=== PATIENT | female | born 1940 | race African-American/Black ===

== ENCOUNTER 2025-01-28 21:34 | Inpatient (IN) | payer MEDICARE, OTHER ==
[~2025-01-28] VITALS: Ht 170.2 cm; Wt 63.5 kg
[2025-01-28 22:25] LABS: BASOPHILS # (AUTO) 0.1 K/uL (0.0-0.2); BASOPHILS % (AUTO) 1.2 % (0.0-2.0); EOSINOPHILS # (AUTO) 0.1 K/uL (0.0-0.7); EOSINOPHILS % (AUTO) 1.3 % (0.0-6.0); HEMATOCRIT 24 % (33-45); HEMOGLOBIN 7.9 g/dL (11.5-14.8); LYMPHOCYTES % (AUTO) 21.2 % (20.0-44.0); MEAN CORPUSCULAR HEMOGLOBIN 24 PG (26.0-33.0); MEAN CORPUSCULAR HGB CONC 32 g/dl (31.0-36.0); MEAN CORPUSCULAR VOLUME 76 fL (82-100); MONOCYTES # (AUTO) 0.8 K/uL (0.1-1.30); MONOCYTES % (AUTO) 16.5 % (2.0-12.0); NEUTROPHILS # (AUTO) 2.8 K/uL (1.8-8.9); NEUTROPHILS % (AUTO) 59.8 % (43.0-81.0); PLATELET COUNT (AUTO) 101 K/uL (150-450); RED BLOOD CELL COUNT(AUTO) 3.23 MIL/uL (4.0-5.2); RED CELL DISTRIBUTION WIDTH 19.1 % (11.5-15.0); WHITE BLOOD COUNT (AUTO) 4.7 K/uL (4.3-11.0)
[2025-01-28 22:32] LABS: CALCIUM, SERUM 9.2 mg/dL (8.5-10.1); CARBON DIOXIDE 29 mmol/L (21-32); CHLORIDE 98 mmol/L (98-107); GLUCOSE 93 mg/dL (74-106); POTASSIUM 4.3 mmol/L (3.5-5.1); SODIUM SERUM 133 mmol/L (136-145); UREA NITROGEN, BLOOD 17 mg/dL (7-18)
[2025-01-28 22:45] LABS: NT-PRO BNP 1164 pg/mL (0-125)
[2025-01-28] MEDS ORDERED: FUROSEMIDE 40 MG/4 ML VIAL ONE (23:25)
[2025-01-28] MEDS: FUROSEMIDE 40 MG/4 ML VIAL IV ONE (23:30)
[2025-01-28] MEDS ORDERED: MORPHINE SULFATE INJ 2 MG/ML DISP.SYRIN ONE (23:46)
[2025-01-28] MEDS: MORPHINE SULFATE INJ 2 MG/ML DISP.SYRIN IV ONE (23:54)
[2025-01-28 23:55] LABS: APPEARANCE,URINE CLEAR (CLEAR); BILIRUBIN,URINE NEGATIVE (NEGATIVE); BLOOD, URINE NEGATIVE Ery/uL (NEGATIVE); COLOR,URINE YELLOW (YELLOW); KETONES,URINE NEGATIVE (NEGATIVE); LEUKOCYTE ESTERASE ,URINE NEGATIVE (NEGATIVE); NITRITE, URINE NEGATIVE (NEGATIVE); PROTEIN,URINE 1+ mg/dl (NEGATIVE); UGLUCOSE NEGATIVE (NEGATIVE); UROBILINOGEN,URINE 0.2 EU/dL (0.2)
[2025-01-29] MEDS ORDERED: ENOXAPARIN SODIUM 40 MG/0.4 ML DISP.SYRIN SQ SCH (00:30)
[2025-01-29 01:22] LABS: ADD URINE CULTURE NO; BACTERIA,URINE None seen /HPF (None Seen); RBC,URINE 0-2 /HPF (0-2); SQUAMOUS EPITHELIAL CELL,UR Rare /HPF (None Seen); WBC,URINE 0-2 /HPF (0-3)
[2025-01-29 04:00] VITALS: BP 113/69; TEMP 97.5; O2SAT 97
[2025-01-29 04:44] LABS: ANISOCYTOSIS 1+; EOSINOPHILS % (MANUAL) 2 % (0-4); HYPOCHROMASIA 1+; LYMPHOCYTES % (MANUAL) 24 % (16-48); MONOCYTES % (MANUAL) 10 % (0-11.0); NEUTROPHILS % (MANUAL) 64 (42-76); PLATELET ESTIMATE DECREASED; TARGET CELLS FEW
[2025-01-29] MEDS: ENOXAPARIN SODIUM 40 MG/0.4 ML DISP.SYRIN SQ SCH (04:54)
[2025-01-29] MEDS: MORPHINE SULFATE INJ 2 MG/ML DISP.SYRIN IV PRN (05:34)
[2025-01-29 07:11] LABS: BASOPHILS # (AUTO) 0.1 K/uL (0.0-0.2); BASOPHILS % (AUTO) 2.3 % (0.0-2.0); EOSINOPHILS # (AUTO) 0.1 K/uL (0.0-0.7); EOSINOPHILS % (AUTO) 1.3 % (0.0-6.0); HEMATOCRIT 25 % (33-45); LYMPHOCYTES # (AUTO) 0.8 K/uL (0.8-4.8); LYMPHOCYTES % (AUTO) 18.9 % (20.0-44.0); MEAN CORPUSCULAR HEMOGLOBIN 25 PG (26.0-33.0); MEAN CORPUSCULAR HGB CONC 32 g/dl (31.0-36.0); MEAN CORPUSCULAR VOLUME 76 fL (82-100); MONOCYTES # (AUTO) 0.7 K/uL (0.1-1.30); MONOCYTES % (AUTO) 16.3 % (2.0-12.0); NEUTROPHILS # (AUTO) 2.5 K/uL (1.8-8.9); NEUTROPHILS % (AUTO) 61.2 % (43.0-81.0); PLATELET COUNT (AUTO) 97 K/uL (150-450); RED BLOOD CELL COUNT(AUTO) 3.25 MIL/uL (4.0-5.2); RED CELL DISTRIBUTION WIDTH 19.6 % (11.5-15.0); WHITE BLOOD COUNT (AUTO) 4.1 K/uL (4.3-11.0)
[2025-01-29 07:19] LABS: CALCIUM, SERUM 9.1 mg/dL (8.5-10.1); CREATININE 0.8 mg/dL (0.6-1.3); MAGNESIUM 2.4 mg/dL (1.8-2.4); PHOSPHORUS 3.7 mg/dL (2.5-4.9); POTASSIUM 3.8 mmol/L (3.5-5.1)
[2025-01-29 07:30] LABS: FERRITIN 21 ng/mL (8-388)
[2025-01-29] MEDS: PANTOPRAZOLE 40 MG TABLET.DR PO SCH (07:35)
[2025-01-29 07:42] LABS: IRON, SERUM 17 ug/dl (50-175); TOTAL IRON BINDING CAPACITY 431 ug/dl (250-450)
[2025-01-29 08:00] VITALS: BP 116/60; TEMP 97.3; O2SAT 96
[2025-01-29] MEDS: FUROSEMIDE 40 MG/4 ML VIAL IV SCH ×2 (08:58→09:30)
[2025-01-29] MEDS: POTASSIUM CHLORIDE 20 MEQ TAB.PRT.SR PO SCH (10:17)
[2025-01-29 14:42] LABS: EOSINOPHILS % (MANUAL) 3 % (0-4); LYMPHOCYTES % (MANUAL) 8 % (16-48); MONOCYTES % (MANUAL) 6 % (0-11.0); NEUTROPHILS % (MANUAL) 83 (42-76)
[2025-01-29 14:43] LABS: ANISOCYTOSIS 1+; HYPOCHROMASIA 1+; PLATELET ESTIMATE DECREASED
[2025-01-29] MEDS: SOD FERRIC GLUC 125 MG in IV NS 0.9% 100 ML IV SCH (15:06)
[2025-01-29 16:00] VITALS: BP 116/91; TEMP 98.1; O2SAT 96
[2025-01-29 20:00] VITALS: BP 105/61; TEMP 97.3; O2SAT 100
[2025-01-29 20:28] VITALS: BP 105/61; TEMP 97.3; O2SAT 100
[2025-01-30 08:00] VITALS: BP 105/70; TEMP 97.5; O2SAT 98
[2025-01-30 13:21] LABS: CREATININE 0.8 mg/dL (0.6-1.3); POTASSIUM 3.7 mmol/L (3.5-5.1)
[2025-01-30 14:07] LABS: BASOPHILS % (AUTO) 0.8 % (0.0-2.0); EOSINOPHILS # (AUTO) 0.1 K/uL (0.0-0.7); EOSINOPHILS % (AUTO) 1.8 % (0.0-6.0); HEMATOCRIT 25 % (33-45); LYMPHOCYTES # (AUTO) 0.7 K/uL (0.8-4.8); LYMPHOCYTES % (AUTO) 15.1 % (20.0-44.0); MEAN CORPUSCULAR HEMOGLOBIN 24 PG (26.0-33.0); MEAN CORPUSCULAR HGB CONC 33 g/dl (31.0-36.0); MEAN CORPUSCULAR VOLUME 75 fL (82-100); MONOCYTES # (AUTO) 0.7 K/uL (0.1-1.30); NEUTROPHILS # (AUTO) 2.8 K/uL (1.8-8.9); NEUTROPHILS % (AUTO) 65.3 % (43.0-81.0); PLATELET COUNT (AUTO) 86 K/uL (150-450); RED BLOOD CELL COUNT(AUTO) 3.26 MIL/uL (4.0-5.2); RED CELL DISTRIBUTION WIDTH 19.9 % (11.5-15.0); WHITE BLOOD COUNT (AUTO) 4.3 K/uL (4.3-11.0)
[2025-01-30 15:48] LABS: EOSINOPHILS % (MANUAL) 1 % (0-4); LYMPHOCYTES % (MANUAL) 10 % (16-48); MONOCYTES % (MANUAL) 11 % (0-11.0); NEUTROPHILS % (MANUAL) 78 (42-76); PLATELET ESTIMATE DECREASED
[2025-01-30 15:49] LABS: ANISOCYTOSIS 1+; HYPOCHROMASIA 1+; TARGET CELLS 1+
[2025-01-30 16:00] VITALS: BP 107/67; TEMP 97.8; O2SAT 99
[2025-01-30] MEDS: MAGNESIUM HYDROXIDE 30 ML UDC PO PRN (17:58)
[2025-01-30 20:00] VITALS: BP 116/72; TEMP 97.7; O2SAT 95; O2SAT 98
[2025-01-30] MEDS: DOCUSATE SODIUM 250 MG CAPSULE PO SCH (21:26)
[2025-01-31] MEDS: CALCIUM CARBONATE 500 MG TAB.CHEW PO PRN (06:23)
[2025-01-31 08:00] VITALS: BP 113/71; TEMP 98.1; O2SAT 99
[2025-01-31 08:03] LABS: BASOPHILS # (AUTO) 0.1 K/uL (0.0-0.2); BASOPHILS % (AUTO) 0.9 % (0.0-2.0); EOSINOPHILS # (AUTO) 0.1 K/uL (0.0-0.7); EOSINOPHILS % (AUTO) 1.2 % (0.0-6.0); HEMATOCRIT 24 % (33-45); HEMOGLOBIN 7.6 g/dL (11.5-14.8); LYMPHOCYTES # (AUTO) 0.6 K/uL (0.8-4.8); LYMPHOCYTES % (AUTO) 10.4 % (20.0-44.0); MEAN CORPUSCULAR HEMOGLOBIN 24 PG (26.0-33.0); MEAN CORPUSCULAR HGB CONC 32 g/dl (31.0-36.0); MEAN CORPUSCULAR VOLUME 75 fL (82-100); MONOCYTES # (AUTO) 0.9 K/uL (0.1-1.30); NEUTROPHILS # (AUTO) 4.5 K/uL (1.8-8.9); NEUTROPHILS % (AUTO) 72.5 % (43.0-81.0); PLATELET COUNT (AUTO) 90 K/uL (150-450); RED BLOOD CELL COUNT(AUTO) 3.14 MIL/uL (4.0-5.2); RED CELL DISTRIBUTION WIDTH 19.4 % (11.5-15.0); WHITE BLOOD COUNT (AUTO) 6.2 K/uL (4.3-11.0)
[2025-01-31 08:08] LABS: CALCIUM, SERUM 9.1 mg/dL (8.5-10.1); CREATININE 0.7 mg/dL (0.6-1.3); POTASSIUM 4.2 mmol/L (3.5-5.1)
[2025-01-31 11:44] LABS: PLATELET ESTIMATE DECREASED
[2025-01-31 11:52] LABS: LYMPHOCYTES % (MANUAL) 8 % (16-48); MONOCYTES % (MANUAL) 9 % (0-11.0); NEUTROPHILS % (MANUAL) 83 (42-76)
[2025-01-31 11:53] LABS: ANISOCYTOSIS 1+; HYPOCHROMASIA 2+
[2025-01-31 11:54] LABS: TARGET CELLS FEW
[2025-01-31] MEDS: ACETAMINOPHEN 325 MG TABLET PO PRN (15:53)
[2025-01-31 16:00] VITALS: BP 108/76; TEMP 97.5; O2SAT 99
[2025-01-31] MEDS ORDERED: GUAIFENESIN/CODEINE 10 ML UDC PO PRN (16:30)
[2025-01-31] MEDS: ONDANSETRON HCL/PF 4 MG/2 ML VIAL IV PRN (16:34)
[2025-01-31] MEDS: GUAIFENESIN/D-METHORPHAN HB 5 ML UDC PO PRN (16:36)
[2025-01-31 21:15] VITALS: BP 97/66; TEMP 97.3; O2SAT 98
[2025-02-01 00:39] VITALS: BP 97/66; TEMP 97.3; O2SAT 98
[2025-02-01 07:30] VITALS: BP 109/71; TEMP 97.3; O2SAT 98
[2025-02-01] MEDS ORDERED: FURO-145 PO (09:28)
[2025-02-01 16:00] VITALS: BP 117/75; TEMP 97.5; O2SAT 99
== END 2025-02-01 17:30 | disposition home health service (06) | DRG 291 ==
LOC: ER 21:39 → TELE 01-29 01:45 → MED 01-29 09:51
PROVIDERS: ADMIT Nurse Practitioner Acute Care; ATTEND Internal Medicine
DX: I11.0 Hypertensive heart disease with heart failure (principal); I50.31 Acute diastolic (congestive) heart failure; D61.818 Other pancytopenia; E87.1 Hypo-osmolality and hyponatremia; K21.9 Gastro-esophageal reflux disease without esophagitis; I48.91 Unspecified atrial fibrillation; D50.9 Iron deficiency anemia, unspecified; I27.20 Pulmonary hypertension, unspecified; I87.2 Venous insufficiency (chronic) (peripheral); Z95.810 Presence of automatic (implantable) cardiac defibrillator; I87.303 Chronic venous hypertension (idiopathic) without complications of bilateral lower extremity
CPT/HCPCS: 36415; 71045-TC; 80048-TC; 81001; 82728-TC; 83540-TC; 83735-TC; 83880; 84100-TC; 84484-TC; 85025-TC; 93307-TC; 93970-TC; 97110-TC; 97116-TC; 97530-TC; A4223; G0378; J1650; J1940; J2270; J2405; J2916; J7030; J7050

== ENCOUNTER 2025-02-26 16:04 | Inpatient (IN) | payer MEDICARE, OTHER ==
[2025-02-26] VITALS: BP 117/79; TEMP 98.1; O2SAT 96
[~2025-02-26] VITALS: Ht 170.2 cm; Wt 55.3 kg
[~2025-02-26 16:04] MED LIST: FURO-145 PO
[2025-02-26 17:33] LABS: EOSINOPHILS % (AUTO) 0.5 % (0.0-6.0); HEMATOCRIT 34 % (33-45); LYMPHOCYTES # (AUTO) 1.3 K/uL (0.8-4.8); MEAN CORPUSCULAR HEMOGLOBIN 25 PG (26.0-33.0); MEAN CORPUSCULAR HGB CONC 32 g/dl (31.0-36.0); MEAN CORPUSCULAR VOLUME 78 fL (82-100); MONOCYTES # (AUTO) 0.3 K/uL (0.1-1.30); MONOCYTES % (AUTO) 8.5 % (2.0-12.0); NEUTROPHILS # (AUTO) 2.1 K/uL (1.8-8.9); PLATELET COUNT (AUTO) 138 K/uL (150-450); RED BLOOD CELL COUNT(AUTO) 4.37 MIL/uL (4.0-5.2); RED CELL DISTRIBUTION WIDTH 28.4 % (11.5-15.0); WHITE BLOOD COUNT (AUTO) 3.8 K/uL (4.3-11.0)
[2025-02-26 17:44] LABS: INR 1.24 (0.91-1.10); PARTIAL THROMBOPLASTIN TIME 29.5 SEC (24.3-34.3); PROTHROMBIN TIME 12.7 SECS (9.2-11.1)
[2025-02-26 17:47] LABS: CHLORIDE 93 mmol/L (98-107); POTASSIUM 4.1 mmol/L (3.5-5.1); SODIUM SERUM 126 mmol/L (136-145)
[2025-02-26 17:48] LABS: CALCIUM, SERUM 8.9 mg/dL (8.5-10.1); CARBON DIOXIDE 26 mmol/L (21-32); CREATININE 0.9 mg/dL (0.6-1.3); GLUCOSE 96 mg/dL (74-106); UREA NITROGEN, BLOOD 14 mg/dL (7-18)
[2025-02-26 17:58] LABS: BILIRUBIN,DIRECT 0.3 mg/dL (0.0-0.2); BILIRUBIN,TOTAL 0.8 mg/dL (0.2-1.0)
[2025-02-26 17:59] LABS: ALANINE AMINOTRANSFERASE 32 U/L (12-78); ALBUMIN 3.1 g/dL (3.4-5.0); ALKALINE PHOSPHATASE 109 U/L (46-116); ASPARTATE AMINOTRANSFERASE 43 U/L (15-37); NT-PRO BNP 1894 pg/mL (0-125); TOTAL PROTEIN, SERUM 6.3 g/dL (6.4-8.2)
[2025-02-26] MEDS ORDERED: FUROSEMIDE 40 MG/4 ML VIAL ONE (19:18)
[2025-02-26] MEDS: FUROSEMIDE 40 MG/4 ML VIAL IV ONE (19:23)
[2025-02-26] MEDS ORDERED: MELA5TAB PO (19:45)
[2025-02-26] MEDS ORDERED: PREG25CA51 PO (19:45)
[2025-02-26] MEDS ORDERED: PHEN26CR2 RC (19:45)
[2025-02-26] MEDS ORDERED: MAGN400O6 PO ×2 (19:45)
[2025-02-26] MEDS ORDERED: FURO20TA4 PO (19:45)
[2025-02-26] MEDS ORDERED: SENN-261 PO (19:45)
[2025-02-26] MEDS ORDERED: ASPI-1169 PO (19:45)
[2025-02-26] MEDS ORDERED: CALC-494 PO (19:45)
[2025-02-26] MEDS ORDERED: ACET-73 PO (19:45)
[2025-02-26] MEDS ORDERED: POLY15DR31 EACHEYE (19:45)
[2025-02-26] MEDS ORDERED: MULT-594 PO (19:45)
[2025-02-26] MEDS ORDERED: ASCO-352 PO (19:45)
[2025-02-26] MEDS ORDERED: PANT40TA49 PO (19:45)
[2025-02-26] MEDS ORDERED: MELA3TAB41 PO (19:45)
[2025-02-26] MEDS ORDERED: CHOL200026 PO (19:45)
[2025-02-26] MEDS ORDERED: DICL100G34 TP (19:45)
[2025-02-26] MEDS ORDERED: Z GUARD REMEDY 4 OZ OINT TP PRN (23:30)
[2025-02-27] MEDS: PREGABALIN 25 MG CAPSULE PO SCH (00:49)
[2025-02-27] MEDS: ENOXAPARIN SODIUM 40 MG/0.4 ML DISP.SYRIN SQ SCH (00:49)
[2025-02-27] MEDS: ACETAMINOPHEN 325 MG TABLET PO PRN (00:50)
[2025-02-27] MEDS: TEMAZEPAM 7.5 MG CAPSULE PO PRN (00:51)
[2025-02-27 04:00] VITALS: BP 99/62; TEMP 97.7; O2SAT 95
[2025-02-27 06:25] LABS: BASOPHILS % (AUTO) 1.3 % (0.0-2.0); EOSINOPHILS % (AUTO) 0.9 % (0.0-6.0); HEMATOCRIT 31 % (33-45); LYMPHOCYTES # (AUTO) 0.7 K/uL (0.8-4.8); LYMPHOCYTES % (AUTO) 17.8 % (20.0-44.0); MEAN CORPUSCULAR HEMOGLOBIN 25 PG (26.0-33.0); MEAN CORPUSCULAR HGB CONC 32 g/dl (31.0-36.0); MEAN CORPUSCULAR VOLUME 77 fL (82-100); MONOCYTES # (AUTO) 0.5 K/uL (0.1-1.30); MONOCYTES % (AUTO) 13.3 % (2.0-12.0); NEUTROPHILS # (AUTO) 2.5 K/uL (1.8-8.9); NEUTROPHILS % (AUTO) 66.7 % (43.0-81.0); PLATELET COUNT (AUTO) 125 K/uL (150-450); WHITE BLOOD COUNT (AUTO) 3.8 K/uL (4.3-11.0)
[2025-02-27 07:27] LABS: CALCIUM, SERUM 8.8 mg/dL (8.5-10.1); CREATININE 0.8 mg/dL (0.6-1.3); MAGNESIUM 2.2 mg/dL (1.8-2.4); PHOSPHORUS 3.2 mg/dL (2.5-4.9); POTASSIUM 3.4 mmol/L (3.5-5.1)
[2025-02-27] MEDS: ASCORBIC ACID 500 MG TABLET PO SCH (08:39)
[2025-02-27] MEDS: PANTOPRAZOLE 40 MG TABLET.DR PO SCH (08:39)
[2025-02-27] MEDS: ASPIRIN 81 MG TAB.CHEW PO SCH (08:39)
[2025-02-27] MEDS: CHOLECALCIFEROL 1,000 UNIT TABLET (VIT D3) PO SCH (08:39)
[2025-02-27] MEDS: FUROSEMIDE 40 MG/4 ML VIAL IV SCH (08:39)
[2025-02-27] MEDS: MULTIVIT W/MINERALS 1 TAB TABLET PO SCH (08:39)
[2025-02-27] MEDS: POTASSIUM CHLORIDE 20 MEQ TAB.PRT.SR PO SCH (11:46)
[2025-02-27 20:00] VITALS: BP 110/63; TEMP 97.5; O2SAT 98
[2025-02-28] VITALS (8 sets, daily range): BP systolic 100–121; BP diastolic 60–82; TEMP 97.4–97.8; O2SAT 92–100
[2025-02-28 07:15] LABS: CALCIUM, SERUM 8.8 mg/dL (8.5-10.1); CREATININE 0.8 mg/dL (0.6-1.3); MAGNESIUM 2.1 mg/dL (1.8-2.4); PHOSPHORUS 2.7 mg/dL (2.5-4.9); POTASSIUM 3.6 mmol/L (3.5-5.1)
[2025-02-28] MEDS: SENNOSIDES 8.6 MG TABLET PO PRN (16:27)
[2025-02-28] MEDS: SOD FERRIC GLUC 125 MG in IV NS 0.9% 100 ML IV SCH (18:54)
[2025-02-28 21:14] LABS: THYROID STIMULATING HORMONE 6.56 uIU/mL (0.358-3.74)
[2025-02-28 22:34] LABS: RHEUMATOID FACTOR SCREEN NEGATIVE (NEGATIVE)
[2025-03-01] VITALS: BP 111/76; TEMP 97.6; O2SAT 96
[2025-03-01] MEDS: MAGNESIUM HYDROXIDE 30 ML UDC PO PRN (00:19)
[2025-03-01 05:04] VITALS: BP 102/58; TEMP 97.7; O2SAT 98
[2025-03-01 05:06] VITALS: BP 113/88; TEMP 97.7; O2SAT 95
[2025-03-01 06:54] LABS: BASOPHILS # (AUTO) 0.1 K/uL (0.0-0.2); BASOPHILS % (AUTO) 1.9 % (0.0-2.0); EOSINOPHILS # (AUTO) 0.1 K/uL (0.0-0.7); EOSINOPHILS % (AUTO) 2.3 % (0.0-6.0); HEMATOCRIT 31 % (33-45); HEMOGLOBIN 10.2 g/dL (11.5-14.8); LYMPHOCYTES # (AUTO) 0.7 K/uL (0.8-4.8); LYMPHOCYTES % (AUTO) 20.3 % (20.0-44.0); MEAN CORPUSCULAR HEMOGLOBIN 26 PG (26.0-33.0); MEAN CORPUSCULAR HGB CONC 33 g/dl (31.0-36.0); MEAN CORPUSCULAR VOLUME 79 fL (82-100); MONOCYTES # (AUTO) 0.7 K/uL (0.1-1.30); MONOCYTES % (AUTO) 19.8 % (2.0-12.0); NEUTROPHILS # (AUTO) 1.9 K/uL (1.8-8.9); NEUTROPHILS % (AUTO) 55.7 % (43.0-81.0); PLATELET COUNT (AUTO) 108 K/uL (150-450); RED BLOOD CELL COUNT(AUTO) 3.93 MIL/uL (4.0-5.2); RED CELL DISTRIBUTION WIDTH 29.6 % (11.5-15.0); WHITE BLOOD COUNT (AUTO) 3.3 K/uL (4.3-11.0)
[2025-03-01] MEDS: FUROSEMIDE 40 MG/4 ML VIAL IV SCH (09:39)
[2025-03-01] MEDS: POTASSIUM CHLORIDE 20 MEQ TAB.PRT.SR PO SCH (09:39)
[2025-03-01] MEDS ORDERED: SOD FERRIC GLUC 125 MG in IV NS 0.9% 100 ML IV SCH (14:00)
[2025-03-01 16:19] LABS: HIV-1 p24 ANTIGEN NON REACTIVE (NONREACTIVE); HIV-1/2 ANTIBODY NON REACTIVE (NONREACTIVE)
[2025-03-01 19:54] LABS: EOSINOPHILS % (MANUAL) 2 % (0-4); LYMPHOCYTES % (MANUAL) 32 % (16-48); MONOCYTES % (MANUAL) 7 % (0-11.0); NEUTROPHILS % (MANUAL) 59 (42-76)
[2025-03-01 19:55] LABS: ANISOCYTOSIS 1+; OVALOCYTES 1+; PLATELET ESTIMATE DECRE; TARGET CELLS 1+
[2025-03-01 20:00] VITALS: BP 112/82; TEMP 97.5; O2SAT 99
[2025-03-02] VITALS (8 sets, daily range): BP systolic 95–142; BP diastolic 65–86; TEMP 97.5–98.2; O2SAT 96–100
[2025-03-02 09:24] LABS: ALANINE AMINOTRANSFERASE 35 U/L (12-78); ALBUMIN 3.1 g/dL (3.4-5.0); ALKALINE PHOSPHATASE 120 U/L (46-116); ASPARTATE AMINOTRANSFERASE 48 U/L (15-37); BILIRUBIN,TOTAL 0.5 mg/dL (0.2-1.0); CALCIUM, SERUM 9.4 mg/dL (8.5-10.1); CARBON DIOXIDE 25 mmol/L (21-32); CHLORIDE 98 mmol/L (98-107); GLUCOSE 74 mg/dL (74-106); PHOSPHORUS 2.9 mg/dL (2.5-4.9); POTASSIUM 4.6 mmol/L (3.5-5.1); SODIUM SERUM 133 mmol/L (136-145); TOTAL PROTEIN, SERUM 6.8 g/dL (6.4-8.2); UREA NITROGEN, BLOOD 11 mg/dL (7-18)
[2025-03-02 10:44] LABS: BASOPHILS % (AUTO) 1.1 % (0.0-2.0); HEMATOCRIT 37 % (33-45); HEMOGLOBIN 11.8 g/dL (11.5-14.8); LYMPHOCYTES # (AUTO) 1.2 K/uL (0.8-4.8); LYMPHOCYTES % (AUTO) 43.2 % (20.0-44.0); MEAN CORPUSCULAR HEMOGLOBIN 25 PG (26.0-33.0); MEAN CORPUSCULAR HGB CONC 32 g/dl (31.0-36.0); MEAN CORPUSCULAR VOLUME 78 fL (82-100); MONOCYTES # (AUTO) 0.2 K/uL (0.1-1.30); MONOCYTES % (AUTO) 7.3 % (2.0-12.0); NEUTROPHILS # (AUTO) 1.3 K/uL (1.8-8.9); NEUTROPHILS % (AUTO) 47.4 % (43.0-81.0); PLATELET COUNT (AUTO) 128 K/uL (150-450); RED BLOOD CELL COUNT(AUTO) 4.71 MIL/uL (4.0-5.2); RED CELL DISTRIBUTION WIDTH 29.3 % (11.5-15.0); WHITE BLOOD COUNT (AUTO) 2.8 K/uL (4.3-11.0)
[2025-03-02 10:50] LABS: D-DIMER 3.33 mg/L(FEU (0.17-0.50); INR 1.12 (0.91-1.10); PARTIAL THROMBOPLASTIN TIME 29.9 SEC (24.3-34.3); PROTHROMBIN TIME 11.8 SECS (9.2-11.1)
[2025-03-02 11:06] LABS: CREATININE 0.8 mg/dL (0.6-1.3)
[2025-03-02 15:02] LABS: APPEARANCE,SPUN,BODY FLUID HAZY (CLEAR); TOTAL VOLUME,BODY FLUID 940 mL; WBC, BODY FLUID 309 /cu. mm. (0-200)
[2025-03-02 15:08] LABS: MACROPHAGES, BODY FLUID 2; MONOCYTES,BODY FLUID 3 %
[2025-03-02 15:47] LABS: PROTEIN, BODY FLUID 2.2 G/DL
[2025-03-03 01:08] VITALS: BP 104/72; TEMP 98.4; O2SAT 96
[2025-03-03 04:27] VITALS: BP 108/73; TEMP 98; O2SAT 98
[2025-03-03 07:10] LABS: CALCIUM, SERUM 9.3 mg/dL (8.5-10.1); CREATININE 0.7 mg/dL (0.6-1.3); MAGNESIUM 2.7 mg/dL (1.8-2.4); PHOSPHORUS 3.2 mg/dL (2.5-4.9); POTASSIUM 4.8 mmol/L (3.5-5.1)
[2025-03-03 08:00] VITALS: BP 99/71; TEMP 97.3; O2SAT 98
[2025-03-03 08:39] LABS: BASOPHILS # (AUTO) 0.1 K/uL (0.0-0.2); BASOPHILS % (AUTO) 1.8 % (0.0-2.0); EOSINOPHILS # (AUTO) 0.1 K/uL (0.0-0.7); EOSINOPHILS % (AUTO) 3.1 % (0.0-6.0); HEMATOCRIT 34 % (33-45); HEMOGLOBIN 10.7 g/dL (11.5-14.8); LYMPHOCYTES # (AUTO) 0.7 K/uL (0.8-4.8); LYMPHOCYTES % (AUTO) 19.4 % (20.0-44.0); MEAN CORPUSCULAR HEMOGLOBIN 26 PG (26.0-33.0); MEAN CORPUSCULAR HGB CONC 32 g/dl (31.0-36.0); MEAN CORPUSCULAR VOLUME 81 fL (82-100); MONOCYTES # (AUTO) 0.5 K/uL (0.1-1.30); MONOCYTES % (AUTO) 13.3 % (2.0-12.0); NEUTROPHILS # (AUTO) 2.2 K/uL (1.8-8.9); NEUTROPHILS % (AUTO) 62.4 % (43.0-81.0); PLATELET COUNT (AUTO) 112 K/uL (150-450); RED BLOOD CELL COUNT(AUTO) 4.17 MIL/uL (4.0-5.2); RED CELL DISTRIBUTION WIDTH 29.7 % (11.5-15.0); WHITE BLOOD COUNT (AUTO) 3.5 K/uL (4.3-11.0)
[2025-03-03] MEDS: METOPROLOL TARTRATE 25 MG TABLET PO SCH (08:54)
[2025-03-03] MEDS: SPIRONOLACTONE 25 MG TABLET PO SCH (08:54)
[2025-03-03 16:00] VITALS: BP 112/83; TEMP 97.3; O2SAT 100
[2025-03-03 16:07] LABS: FREE KAPPA LT CHAINS SERUM 28.6 mg/L (3.3-19.4); FREE LAMBDA LT CHAIN SERUM 17.5 mg/L (5.7-26.3); KAPPA/LAMBDA RATIO SERUM 1.63 (0.26-1.65)
[2025-03-03 18:07] LABS: APPEARANCE,URINE CLOUDY (CLEAR); COLOR,URINE AMBER (YELLOW)
[2025-03-03] MEDS: ONDANSETRON HCL/PF 4 MG/2 ML VIAL IVP PRN (18:09)
[2025-03-03] MEDS: MAG HYDROX/AL HYDROX/SIMETH 30 ML UDC PO PRN (19:15)
[2025-03-03 20:00] VITALS: BP 105/62; TEMP 98.1; O2SAT 98
[2025-03-03 20:38] LABS: RBC,URINE TOO NUMEROUS TO COUN /HPF (0-2)
[2025-03-03 20:39] LABS: BACTERIA,URINE Many /HPF (None Seen)
[2025-03-03 20:40] LABS: SQUAMOUS EPITHELIAL CELL,UR Few /HPF (None Seen)
[2025-03-04 08:00] VITALS: BP 96/68; TEMP 98; O2SAT 96; O2SAT 98
[2025-03-04 10:26] LABS: BASOPHILS % (AUTO) 0.7 % (0.0-2.0); EOSINOPHILS # (AUTO) 0.1 K/uL (0.0-0.7); EOSINOPHILS % (AUTO) 3.1 % (0.0-6.0); HEMATOCRIT 31 % (33-45); HEMOGLOBIN 9.9 g/dL (11.5-14.8); LYMPHOCYTES # (AUTO) 0.6 K/uL (0.8-4.8); LYMPHOCYTES % (AUTO) 21.8 % (20.0-44.0); MEAN CORPUSCULAR HEMOGLOBIN 26 PG (26.0-33.0); MEAN CORPUSCULAR HGB CONC 32 g/dl (31.0-36.0); MEAN CORPUSCULAR VOLUME 79 fL (82-100); MONOCYTES # (AUTO) 0.4 K/uL (0.1-1.30); MONOCYTES % (AUTO) 13.6 % (2.0-12.0); NEUTROPHILS # (AUTO) 1.8 K/uL (1.8-8.9); NEUTROPHILS % (AUTO) 60.8 % (43.0-81.0); PLATELET COUNT (AUTO) 99 K/uL (150-450); RED BLOOD CELL COUNT(AUTO) 3.87 MIL/uL (4.0-5.2); RED CELL DISTRIBUTION WIDTH 28.9 % (11.5-15.0); WHITE BLOOD COUNT (AUTO) 2.9 K/uL (4.3-11.0)
[2025-03-04] MEDS: CEFTRIAXONE 1 G in IV D5W 50 ML IV SCH (11:06)
[2025-03-04] MEDS: POLYVINYL ALCOHOL 15 ML BOTTLE EACHEYE PRN (11:07)
[2025-03-04 12:13] LABS: ANISOCYTOSIS 2+; HYPOCHROMASIA 1+; LYMPHOCYTES % (MANUAL) 14 % (16-48); MONOCYTES % (MANUAL) 8 % (0-11.0); NEUTROPHILS % (MANUAL) 78 (42-76); PLATELET ESTIMATE DECREASED
[2025-03-04] MEDS ORDERED: CT SWABBABLE VALVE TRANS SET 1 EA INFUS.SET MC ONE (12:13)
[2025-03-04] MEDS ORDERED: IOHEXOL-350 100 ML VIAL IV ONE (12:13)
[2025-03-04] MEDS ORDERED: METOPROLOL TARTRATE INJ 5 MG/5 ML AMPUL IVP PRN (12:30)
[2025-03-04] MEDS ORDERED: METOPROLOL TARTRATE INJ 5 MG/5 ML AMPUL ONE (12:36)
[2025-03-04] MEDS: NITROGLYCERIN 0.4 MG/TAB BOTTLE SL ONE (13:27)
[2025-03-04] MEDS ORDERED: SPIR25TA6 PO (14:05)
[2025-03-04] MEDS ORDERED: FURO-145 PO (14:05)
[2025-03-04] MEDS ORDERED: NITR100C6 PO (14:05)
[2025-03-04] MEDS ORDERED: METO25TA20 PO (14:05)
[2025-03-04] MEDS ORDERED: ASCO500C18 PO (14:05)
[2025-03-04] MEDS ORDERED: FERR325T23 PO (14:05)
[2025-03-04 15:42] LABS: APPEARANCE,URINE SLIGHTLY CLOUDY (CLEAR); BILIRUBIN,URINE NEGATIVE (NEGATIVE); BLOOD, URINE 3+ Ery/uL (NEGATIVE); COLOR,URINE YELLOW (YELLOW); KETONES,URINE NEGATIVE (NEGATIVE); LEUKOCYTE ESTERASE ,URINE 1+ (NEGATIVE); NITRITE, URINE NEGATIVE (NEGATIVE); PH,URINE 7.5 (5.0-8.0); PROTEIN,URINE TRACE mg/dl (NEGATIVE); UGLUCOSE NEGATIVE (NEGATIVE); UROBILINOGEN,URINE 0.2 EU/dL (0.2)
[2025-03-04 16:00] VITALS: BP 90/50; TEMP 97.1; O2SAT 98
[2025-03-04 19:10] LABS: ADD URINE CULTURE YES; BACTERIA,URINE Moderate /HPF (None Seen); RBC,URINE 81-100 /HPF (0-2)
[2025-03-04 19:11] LABS: SQUAMOUS EPITHELIAL CELL,UR Few /HPF (None Seen)
[2025-03-05 03:11] LABS: HEPATITIS B CORE AB, IgM Negative (Negative); HEPATITIS B CORE AB, TOTAL Negative (Negative); HEPATITIS B SURFACE AB (QUAL) Non Reactive (.)
[2025-03-05 05:09] LABS: IMMUNOGLOBULIN A, SERUM 400 mg/dL (64-422); IMMUNOGLOBULIN G, SERUM 1173 mg/dL (586-1602); IMMUNOGLOBULIN M, SERUM 47 mg/dL (26-217)
== END 2025-03-04 18:00 | DRG 291 ==
LOC: ER 16:09 → MED 22:32 → TELE 02-27 00:25 → MED 03-03 09:38
PROVIDERS: ADMIT Nurse Practitioner Family; ATTEND Nurse Practitioner Family
PROC: 0W993ZZ Drainage of Right Pleural Cavity, Percutaneous Approach (ICD-10-PCS; principal; 2025-03-02)
DX: I11.0 Hypertensive heart disease with heart failure (principal); I50.33 Acute on chronic diastolic (congestive) heart failure; D61.818 Other pancytopenia; E87.1 Hypo-osmolality and hyponatremia; E44.1 Mild protein-calorie malnutrition; L03.115 Cellulitis of right lower limb; L03.116 Cellulitis of left lower limb; J91.8 Pleural effusion in other conditions classified elsewhere; Z68.1 Body mass index [BMI] 19.9 or less, adult; D72.821 Monocytosis (symptomatic); D50.9 Iron deficiency anemia, unspecified; E88.09 Other disorders of plasma-protein metabolism, not elsewhere classified; K21.9 Gastro-esophageal reflux disease without esophagitis; Z79.82 Long term (current) use of aspirin; I48.91 Unspecified atrial fibrillation; I27.20 Pulmonary hypertension, unspecified; I87.8 Other specified disorders of veins; Z95.810 Presence of automatic (implantable) cardiac defibrillator; I34.0 Nonrheumatic mitral (valve) insufficiency; I73.9 Peripheral vascular disease, unspecified
CPT/HCPCS: 36415; 71045-TC; 75574; 76700-TC; 80048-TC; 80053-TC; 80061-TC; 80076-TC; 81001; 82378; 82607-TC; 82728-TC; 82784; 83010; 83540-TC; 83615-TC; 83735-TC; 83880; 84100-TC; 84155; 84165; 84439-TC; 84443-TC; 84484-TC; 85025-TC; 85045-TC; 85385-TC; 85396; 85730-TC; 86225; 86235; 86334; 86431-TC; 86704; 86705; 86706; 86803; 86850-TC; 86880-TC; 87070-TC; 87075-TC; 87081-TC; 87102-TC; 87340; 87806; 89051-TC; 93970-TC; A4223; G0378; J0696; J1650; J1938; J2405; J2916; J3490; J7030; J7050; J7060; Q9967

== ENCOUNTER 2025-03-30 11:04 | Inpatient (IN) | payer MEDICARE, OTHER ==
[~2025-03-30] VITALS: Ht 165.1 cm; Wt 67.6 kg
[~2025-03-30 11:04] MED LIST changes: +ACET-73 PO; +ASCO-352 PO; +ASCO500C18 PO; +ASPI-1169 PO; +CALC-494 PO; +CHOL200026 PO; +DICL100G34 TP; +FERR325T23 PO; +MAGN400O6 PO; +MELA3TAB41 PO; +MELA5TAB PO; +METO25TA20 PO; +MULT-594 PO; +NITR100C6 PO; +PANT40TA49 PO; +PHEN26CR2 RC; +POLY15DR31 EACHEYE; +PREG25CA51 PO; +SENN-261 PO; +SPIR25TA6 PO
[2025-03-30] MEDS: IV NS 0.9% 500 ML BAG IV ONE (11:45)
[2025-03-30 11:57] LABS: CALCIUM, SERUM 9.4 mg/dL (8.5-10.1); CREATININE 0.8 mg/dL (0.6-1.3); GLUCOSE 85 mg/dL (74-106); UREA NITROGEN, BLOOD 24 mg/dL (7-18)
[2025-03-30 12:05] LABS: CARBON DIOXIDE 23 mmol/L (21-32); CHLORIDE 93 mmol/L (98-107); POTASSIUM 4.8 mmol/L (3.5-5.1); SODIUM SERUM 123 mmol/L (136-145)
[2025-03-30] MEDS ORDERED: FURO20TA4 PO (12:07)
[2025-03-30] MEDS ORDERED: TRAM50TA2 PO (12:07)
[2025-03-30] MEDS ORDERED: CEPH-570 PO (12:07)
[2025-03-30 12:42] LABS: BASOPHILS % (AUTO) 0.1 % (0.0-2.0); EOSINOPHILS % (AUTO) 0.5 % (0.0-6.0); HEMATOCRIT 35 % (33-45); HEMOGLOBIN 11.5 g/dL (11.5-14.8); LYMPHOCYTES # (AUTO) 0.3 K/uL (0.8-4.8); LYMPHOCYTES % (AUTO) 6.1 % (20.0-44.0); MEAN CORPUSCULAR HEMOGLOBIN 27 PG (26.0-33.0); MEAN CORPUSCULAR HGB CONC 33 g/dl (31.0-36.0); MEAN CORPUSCULAR VOLUME 83 fL (82-100); MONOCYTES # (AUTO) 0.5 K/uL (0.1-1.30); MONOCYTES % (AUTO) 9.5 % (2.0-12.0); NEUTROPHILS # (AUTO) 4.3 K/uL (1.8-8.9); NEUTROPHILS % (AUTO) 83.8 % (43.0-81.0); RED BLOOD CELL COUNT(AUTO) 4.24 MIL/uL (4.0-5.2); WHITE BLOOD COUNT (AUTO) 5.2 K/uL (4.3-11.0)
[2025-03-30 12:58] LABS: APPEARANCE,URINE CLEAR (CLEAR); BILIRUBIN,URINE Negative (NEGATIVE); BLOOD, URINE Negative Ery/uL (NEGATIVE); COLOR,URINE YELLOW (YELLOW); KETONES,URINE 15 mg/dL (NEGATIVE); LEUKOCYTE ESTERASE ,URINE Negative (NEGATIVE); PROTEIN,URINE 100 mg/dl (NEGATIVE); UGLUCOSE Negative (NEGATIVE); UROBILINOGEN,URINE 0.2 EU/dL (0.2)
[2025-03-30 12:59] LABS: NITRITE, URINE NEGATIVE (NEGATIVE)
[2025-03-30 13:03] LABS: PLATELET COUNT (AUTO) 37 K/uL (150-450)
[2025-03-30 13:06] LABS: LYMPHOCYTES % (MANUAL) 8 % (16-48); MONOCYTES % (MANUAL) 6 % (0-11.0); NEUTROPHILS % (MANUAL) 86 (42-76); PLATELET ESTIMATE DECREASED
[2025-03-30 13:07] LABS: ANISOCYTOSIS 1+; TARGET CELLS 1+
[2025-03-30 13:28] LABS: ADD URINE CULTURE NO; BACTERIA,URINE Few /HPF (None Seen); RBC,URINE 0-2 /HPF (0-2); SQUAMOUS EPITHELIAL CELL,UR Few /HPF (None Seen); WBC,URINE 0-2 /HPF (0-3)
[2025-03-30 16:02] VITALS: BP 97/59; TEMP 98.1; O2SAT 100
[2025-03-30] MEDS ORDERED: ONDANSETRON HCL/PF 4 MG/2 ML VIAL IVP PRN (19:30)
[2025-03-30] MEDS ORDERED: ACETAMINOPHEN 325 MG TABLET PO PRN (19:30)
[2025-03-30] MEDS ORDERED: Z GUARD REMEDY 4 OZ OINT TP PRN (19:30)
[2025-03-30 20:00] VITALS: BP 102/40; TEMP 98.8; O2SAT 97
[2025-03-30] MEDS: IV NS 0.9% 1,000 ML IV PRN (20:29)
[2025-03-31] VITALS (43 sets, daily range): BP systolic 98–135; BP diastolic 59–91; TEMP 90–98.2; O2SAT 75–99
[2025-03-31] MEDS: PANTOPRAZOLE 40 MG TABLET.DR PO SCH (07:30)
[2025-03-31 07:48] LABS: CREATININE 0.6 mg/dL (0.6-1.3); MAGNESIUM 2.2 mg/dL (1.8-2.4); PHOSPHORUS 4.1 mg/dL (2.5-4.9)
[2025-03-31 08:11] LABS: POTASSIUM 5.9 mmol/L (3.5-5.1)
[2025-03-31 08:16] LABS: BASOPHILS % (AUTO) 0.3 % (0.0-2.0); EOSINOPHILS % (AUTO) 0.6 % (0.0-6.0); HEMATOCRIT 42 % (33-45); HEMOGLOBIN 12.7 g/dL (11.5-14.8); LYMPHOCYTES # (AUTO) 0.5 K/uL (0.8-4.8); LYMPHOCYTES % (AUTO) 9.4 % (20.0-44.0); MEAN CORPUSCULAR HEMOGLOBIN 27 PG (26.0-33.0); MEAN CORPUSCULAR HGB CONC 31 g/dl (31.0-36.0); MEAN CORPUSCULAR VOLUME 88 fL (82-100); MONOCYTES # (AUTO) 0.3 K/uL (0.1-1.30); MONOCYTES % (AUTO) 6.8 % (2.0-12.0); NEUTROPHILS # (AUTO) 4.1 K/uL (1.8-8.9); NEUTROPHILS % (AUTO) 82.9 % (43.0-81.0); RED BLOOD CELL COUNT(AUTO) 4.73 MIL/uL (4.0-5.2); RED CELL DISTRIBUTION WIDTH 33.7 % (11.5-15.0); WHITE BLOOD COUNT (AUTO) 4.9 K/uL (4.3-11.0)
[2025-03-31] MEDS: ASPIRIN EC 81 MG TABLET.DR PO SCH (08:22)
[2025-03-31 09:00] LABS: PLATELET COUNT (AUTO) 38 K/uL (150-450)
[2025-03-31] MEDS: IV Sodium Chloride 3% 500 ML 500 ML IV PRN (09:50)
[2025-03-31] MEDS: DEXTROSE 50%-WATER 50 ML DISP.SYRIN IVP ONE (09:51)
[2025-03-31 11:18] LABS: CALCIUM, SERUM 8.8 mg/dL (8.5-10.1); CREATININE 0.7 mg/dL (0.6-1.3); POTASSIUM 4.6 mmol/L (3.5-5.1)
[2025-03-31] MEDS: IV D5/ 0.9% NACL 1,000 ML IV SCH (11:29)
[2025-03-31 12:53] LABS: IRON, SERUM 39 ug/dl (50-175); TOTAL IRON BINDING CAPACITY 292 ug/dl (250-450)
[2025-03-31 13:06] LABS: FERRITIN 383 ng/mL (8-388)
[2025-03-31 13:48] LABS: LYMPHOCYTES % (MANUAL) 7 % (16-48); MONOCYTES % (MANUAL) 1 % (0-11.0); NEUTROPHILS % (MANUAL) 92 (42-76)
[2025-03-31 13:49] LABS: ANISOCYTOSIS 1+; PLATELET ESTIMATE DECREASED; TARGET CELLS 1+
[2025-03-31] MEDS: GLUCAGON,HUMAN RECOMBINANT 1 MG/VIAL VIAL IM ONE (14:30)
[2025-03-31 15:43] LABS: ABG BASE EXCESS -2.3 mmol/L (-2.0-3.0); ABG OXYGEN SATURATION 99.8 % (94.0-98.0); ABG PCO2 30.4 mmHg (32.0-45.0); ABG PH 7.451 (7.350-7.450); ABG PO2 225.8 mmHg (83.0-108.0); ABG TOTAL HEMOGLOBIN 12.7 G/dL (12.0-16.0); COHb 1.4 % (0.5-1.5); MetHb 0.3 % (0.0-1.5); O2Hb 98.1 % (94.0-97.0); SITE, ABG RIGHT BRACHIAL
[2025-03-31 16:12] LABS: ALBUMIN 2.8 g/dL (3.4-5.0)
[2025-03-31] MEDS: BUMETANIDE INJ 0.25 MG/ML VIAL IV ONE (22:31)
[2025-03-31] MEDS: DEXTROSE 50%-WATER 50 ML DISP.SYRIN IVP STA (23:47)
[2025-03-31 23:49] LABS: BASOPHILS % (AUTO) 0.3 % (0.0-2.0); EOSINOPHILS % (AUTO) 0.2 % (0.0-6.0); HEMATOCRIT 35 % (33-45); HEMOGLOBIN 11.4 g/dL (11.5-14.8); LYMPHOCYTES # (AUTO) 0.2 K/uL (0.8-4.8); LYMPHOCYTES % (AUTO) 2.3 % (20.0-44.0); MEAN CORPUSCULAR HEMOGLOBIN 28 PG (26.0-33.0); MEAN CORPUSCULAR HGB CONC 33 g/dl (31.0-36.0); MEAN CORPUSCULAR VOLUME 85 fL (82-100); MONOCYTES # (AUTO) 0.5 K/uL (0.1-1.30); MONOCYTES % (AUTO) 7.5 % (2.0-12.0); NEUTROPHILS # (AUTO) 5.9 K/uL (1.8-8.9); NEUTROPHILS % (AUTO) 89.7 % (43.0-81.0); RED BLOOD CELL COUNT(AUTO) 4.12 MIL/uL (4.0-5.2); RED CELL DISTRIBUTION WIDTH 33.3 % (11.5-15.0)
[2025-04-01] VITALS (107 sets, daily range): BP systolic 76–124; BP diastolic 52–99; TEMP 96.2–98.8; O2SAT 79–100
[2025-04-01 00:01] LABS: INR 1.47 (0.91-1.10); PARTIAL THROMBOPLASTIN TIME 37.6 SEC (24.3-34.3); PROTHROMBIN TIME 15.2 SECS (9.2-11.1)
[2025-04-01 00:02] LABS: CALCIUM, SERUM 9.2 mg/dL (8.5-10.1); CREATININE 0.7 mg/dL (0.6-1.3); POTASSIUM 4.3 mmol/L (3.5-5.1)
[2025-04-01 00:05] LABS: PLATELET COUNT (AUTO) 20 K/uL (150-450)
[2025-04-01 00:08] LABS: BILIRUBIN,TOTAL 1.6 mg/dL (0.2-1.0); MAGNESIUM 1.9 mg/dL (1.8-2.4); PHOSPHORUS 3.8 mg/dL (2.5-4.9)
[2025-04-01] MEDS: BLOOD SUGAR DIAGNOSTIC 1 EACH STRIP IN SCH (00:29)
[2025-04-01] MEDS ORDERED: Sodium Chloride 154 MEQ in IV 10% DEXTROSE 1,000 ML IV PRN ×2 (00:30→01:00)
[2025-04-01 00:37] LABS: HYPOCHROMASIA 1+; LYMPHOCYTES % (MANUAL) 5 % (16-48); MONOCYTES % (MANUAL) 4 % (0-11.0); NEUTROPHILS % (MANUAL) 91 (42-76); PLATELET ESTIMATE DECREASED
[2025-04-01 00:38] LABS: ANISOCYTOSIS 2+
[2025-04-01 01:03] LABS: WHITE BLOOD COUNT (AUTO) 5.8 K/uL (4.3-11.0)
[2025-04-01] MEDS: IV 10% DEXTROSE 1,000 ML IV ONE (01:08)
[2025-04-01] MEDS: IV NS 0.9% 1,000 ML IV ONE (01:09)
[2025-04-01] MEDS: NOREPINEPHRINE 8MG/250ML RTU 250 ML IV ONE (04:03)
[2025-04-01] MEDS: NOREPINEPHRINE 8 MG in IV D5W 242 ML IV PRN (04:06)
[2025-04-01 04:21] LABS: BASOPHILS % (AUTO) 0.2 % (0.0-2.0); EOSINOPHILS % (AUTO) 0.2 % (0.0-6.0); HEMATOCRIT 32 % (33-45); HEMOGLOBIN 10.5 g/dL (11.5-14.8); LYMPHOCYTES # (AUTO) 0.1 K/uL (0.8-4.8); LYMPHOCYTES % (AUTO) 2.1 % (20.0-44.0); MEAN CORPUSCULAR HEMOGLOBIN 28 PG (26.0-33.0); MEAN CORPUSCULAR HGB CONC 33 g/dl (31.0-36.0); MEAN CORPUSCULAR VOLUME 84 fL (82-100); MONOCYTES # (AUTO) 0.6 K/uL (0.1-1.30); MONOCYTES % (AUTO) 10.2 % (2.0-12.0); NEUTROPHILS # (AUTO) 5.3 K/uL (1.8-8.9); NEUTROPHILS % (AUTO) 87.3 % (43.0-81.0); RED BLOOD CELL COUNT(AUTO) 3.83 MIL/uL (4.0-5.2); RED CELL DISTRIBUTION WIDTH 33.2 % (11.5-15.0)
[2025-04-01 04:35] LABS: PLATELET COUNT (AUTO) 22 K/uL (150-450)
[2025-04-01 04:56] LABS: CALCIUM, SERUM 8.5 mg/dL (8.5-10.1); CARBON DIOXIDE 24 mmol/L (21-32); CHLORIDE 99 mmol/L (98-107); CREATININE 0.8 mg/dL (0.6-1.3); GLUCOSE 107 mg/dL (74-106); MAGNESIUM 1.7 mg/dL (1.8-2.4); PHOSPHORUS 3.5 mg/dL (2.5-4.9); POTASSIUM 4.4 mmol/L (3.5-5.1); SODIUM SERUM 134 mmol/L (136-145); UREA NITROGEN, BLOOD 18 mg/dL (7-18)
[2025-04-01 05:10] LABS: ANISOCYTOSIS 1+; LYMPHOCYTES % (MANUAL) 3 % (16-48); MONOCYTES % (MANUAL) 6 % (0-11.0); NEUTROPHILS % (MANUAL) 91 (42-76); PLATELET ESTIMATE DECREASED
[2025-04-01 05:13] LABS: WHITE BLOOD COUNT (AUTO) 5.6 K/uL (4.3-11.0)
[2025-04-01 05:18] LABS: URIC ACID < 2.6 mg/dL (2.6-7.2)
[2025-04-01] MEDS: IV NS 0.9% 1,000 ML IV SCH (06:51)
[2025-04-01] MEDS: IV 10% DEXTROSE 1,000 ML IV SCH (06:51)
[2025-04-01] MEDS: Sodium Chloride 154 MEQ in IV 10% DEXTROSE 1,000 ML IV SCH (08:00)
[2025-04-01 08:39] LABS: ABG BASE EXCESS -1.4 mmol/L (-2.0-3.0); ABG OXYGEN SATURATION 94.1 % (94.0-98.0); ABG PCO2 27.2 mmHg (32.0-45.0); ABG PH 7.499 (7.350-7.450); ABG PO2 70.5 mmHg (83.0-108.0); ABG TOTAL HEMOGLOBIN 11.7 G/dL (12.0-16.0); COHb 1.5 % (0.5-1.5); MetHb 0.3 % (0.0-1.5); O2Hb 92.4 % (94.0-97.0); SITE, ABG RIGHT BRACHIAL
[2025-04-01 08:43] LABS: ABG BASE EXCESS -2.2 mmol/L (-2.0-3.0); ABG OXYGEN SATURATION 92.9 % (94.0-98.0); ABG PCO2 32.9 mmHg (32.0-45.0); ABG PO2 71.7 mmHg (83.0-108.0); ABG TOTAL HEMOGLOBIN 12.7 G/dL (12.0-16.0); COHb 1.7 % (0.5-1.5); MetHb 0.3 % (0.0-1.5); SITE, ABG LEFT RADIAL
[2025-04-01] MEDS ORDERED: ALBUTEROL HALF STRENGTH 1.25 MG/3 ML VIAL.NEB NEB PRN (09:00)
[2025-04-01] MEDS ORDERED: methylPREDNISolone SOD SUCC 125 MG/2ML VIAL IV SCH (09:30)
[2025-04-01] MEDS: Magnesium 1GM/D5W 100ML PREMIX 100 ML IV SCH (09:34)
[2025-04-01] MEDS: ALBUTEROL HALF STRENGTH 1.25 MG/3 ML VIAL.NEB NEB SCH (09:57)
[2025-04-01] MEDS: IPRATROPIUM NEB FS 0.5 MG/2.5 ML AMPUL.NEB NEB SCH (09:57)
[2025-04-01] MEDS: CEFEPIME 2 GM in IV D5W 100 ML IV SCH (10:44)
[2025-04-01] MEDS: methylPREDNISolone SOD SUCC 40 MG/ML VIAL IV SCH (11:01)
[2025-04-01] MEDS ORDERED: DOBUTamine 250 MG in IV D5W 230 ML IV ONE (11:30)
[2025-04-01] MEDS ORDERED: BUMETANIDE INJ 1 MG in IV NS 0.9% 40 ML IV ONE (11:30)
[2025-04-01] MEDS: BUMETANIDE INJ 4 MG in IV NS 0.9% 24 ML IV ONE (11:43)
[2025-04-01 11:56] LABS: BILIRUBIN,DIRECT 0.8 mg/dL (0.0-0.2); BILIRUBIN,TOTAL 1.7 mg/dL (0.2-1.0)
[2025-04-01] MEDS ORDERED: DOBUTamine 250 MG in IV D5W 230 ML IV PRN (14:30)
[2025-04-01] MEDS: ACETYLCYSTEINE 10% SOLN 400 MG/4 ML VIAL NEB SCH (14:47)
[2025-04-01 15:30] LABS: CALCIUM, SERUM 8.7 mg/dL (8.5-10.1); CREATININE 0.9 mg/dL (0.6-1.3); POTASSIUM 3.7 mmol/L (3.5-5.1)
[2025-04-01] MEDS ORDERED: ACETYLCYSTEINE 10% SOLN 400 MG/4 ML VIAL NEB SCH (15:30)
[2025-04-01] MEDS ORDERED: D5W IV PRN (15:30)
[2025-04-01] MEDS ORDERED: DOBUTAMINE IV PRN (15:30)
[2025-04-01] MEDS: DOBUTamine 500 MG in IV D5W 210 ML IV PRN (16:01)
[2025-04-01] MEDS: DoBUTamine 500 MG/250 ML PIGGYBACK IV ONE (16:04)
[2025-04-01 17:28] LABS: PROTEIN, BODY FLUID 1.7 G/DL
[2025-04-01] MEDS: ACETAMINOPHEN 325 MG TABLET PO ONE (18:00)
[2025-04-01 19:49] LABS: APPEARANCE,SPUN,BODY FLUID CLEAR (CLEAR); MONOCYTES,BODY FLUID 2 %; TOTAL VOLUME,BODY FLUID 30 mL; WBC, BODY FLUID 217 /cu. mm. (0-200)
[2025-04-01 21:21] LABS: CALCIUM, SERUM 8.1 mg/dL (8.5-10.1); POTASSIUM 3.6 mmol/L (3.5-5.1)
[2025-04-02] VITALS (64 sets, daily range): BP systolic 89–119; BP diastolic 55–87; TEMP 96.4–98.7; O2SAT 89–100
[2025-04-02] MEDS: diphenhydrAMINE HCL 50 MG/ML VIAL IV ONE (00:48)
[2025-04-02] MEDS: diphenhydrAMINE HCL 50 MG/ML VIAL ONE (00:54)
[2025-04-02 04:53] LABS: BASOPHILS % (AUTO) 0.1 % (0.0-2.0); HEMATOCRIT 28 % (33-45); HEMOGLOBIN 9.4 g/dL (11.5-14.8); LYMPHOCYTES # (AUTO) 0.2 K/uL (0.8-4.8); LYMPHOCYTES % (AUTO) 3.7 % (20.0-44.0); MEAN CORPUSCULAR HEMOGLOBIN 28 PG (26.0-33.0); MEAN CORPUSCULAR HGB CONC 33 g/dl (31.0-36.0); MEAN CORPUSCULAR VOLUME 84 fL (82-100); MONOCYTES # (AUTO) 0.3 K/uL (0.1-1.30); MONOCYTES % (AUTO) 6.8 % (2.0-12.0); NEUTROPHILS # (AUTO) 4.5 K/uL (1.8-8.9); NEUTROPHILS % (AUTO) 89.4 % (43.0-81.0); RED BLOOD CELL COUNT(AUTO) 3.36 MIL/uL (4.0-5.2); RED CELL DISTRIBUTION WIDTH 33.5 % (11.5-15.0)
[2025-04-02 05:02] LABS: D-DIMER 3.27 mg/L(FEU (0.17-0.50); INR 1.35 (0.91-1.10); PARTIAL THROMBOPLASTIN TIME 35.6 SEC (24.3-34.3)
[2025-04-02 05:06] LABS: ALBUMIN 2.8 g/dL (3.4-5.0); BILIRUBIN,TOTAL 1.8 mg/dL (0.2-1.0); CALCIUM, SERUM 8.5 mg/dL (8.5-10.1); CREATININE 0.8 mg/dL (0.6-1.3); PHOSPHORUS 2.8 mg/dL (2.5-4.9); POTASSIUM 3.7 mmol/L (3.5-5.1); TOTAL PROTEIN, SERUM 5.8 g/dL (6.4-8.2)
[2025-04-02 05:10] LABS: PLATELET COUNT (AUTO) 40 K/uL (150-450)
[2025-04-02 05:35] LABS: LYMPHOCYTES % (MANUAL) 5 % (16-48); MONOCYTES % (MANUAL) 4 % (0-11.0); NEUTROPHILS % (MANUAL) 91 (42-76)
[2025-04-02 05:36] LABS: ANISOCYTOSIS 1+; HYPOCHROMASIA 1+; PLATELET ESTIMATE DECREASED
[2025-04-02 05:41] LABS: WHITE BLOOD COUNT (AUTO) 4.3 K/uL (4.3-11.0)
[2025-04-02 06:11] LABS: *ANA ANTI-CENTROMERE B AB <0.2 AI (0.0-0.9); *ANA ANTI-DNA(DS) AB, QN <1 IU/mL (0-9); *ANA ANTI-JO-1 <0.2 AI (0.0-0.9); *ANA ANTICHROMATIN ANTIBODY <0.2 AI (0.0-0.9); *ANA RNP ANTIBODIES <0.2 AI (0.0-0.9); *ANA SJOGREN'S ANTI-SS-A <0.2 AI (0.0-0.9); *ANA SJOGREN'S ANTI-SS-B <0.2 AI (0.0-0.9); *ANAANTI-SCLERODERMA-70 AB <0.2 AI (0.0-0.9); *ANASMITH AB <0.2 AI (0.0-0.9)
[2025-04-02 06:11] LABS: RAPID PLASMA REAGIN QUAL. Non Reactive (Non Reactive)
[2025-04-02 08:07] LABS: COMPLEMENT C3, SERUM 73 mg/dL (82-167); COMPLEMENT C4, SERUM 11 mg/dL (12-38)
[2025-04-02 08:07] LABS: FOLIC ACID > 20.0 ng/mL (>3.0)
[2025-04-02 08:35] LABS: CREATININE 0.9 mg/dL (0.6-1.3); POTASSIUM 3.8 mmol/L (3.5-5.1)
[2025-04-02] MEDS: MUPIROCIN OINT 2% 22 GM TUBE NS SCH (12:52)
[2025-04-02] MEDS: ACETAMINOPHEN 325 MG/SUPP.RECT RC PRN (14:16)
[2025-04-02 15:49] LABS: CREATININE 0.7 mg/dL (0.6-1.3); POTASSIUM 3.6 mmol/L (3.5-5.1)
[2025-04-02 20:58] LABS: CREATININE 0.9 mg/dL (0.6-1.3)
[2025-04-02 21:09] LABS: POTASSIUM 3.7 mmol/L (3.5-5.1)
[2025-04-03] VITALS (96 sets, daily range): BP systolic 69–118; BP diastolic 56–91; TEMP 96.5–97.7; O2SAT 67–100
[2025-04-03 02:59] LABS: ABG BASE EXCESS -1.9 mmol/L (-2.0-3.0); ABG OXYGEN SATURATION 66.9 % (94.0-98.0); ABG PCO2 43.5 mmHg (32.0-45.0); ABG PH 7.354 (7.350-7.450); ABG PO2 40.5 mmHg (83.0-108.0); ABG TOTAL HEMOGLOBIN 11.9 G/dL (12.0-16.0); MetHb 0.2 % (0.0-1.5); O2Hb 66.1 % (94.0-97.0); SITE, ABG RIGHT RADIAL
[2025-04-03] MEDS: PROPOFOL 100 ML IV PRN (03:21)
[2025-04-03 04:38] LABS: ABG BASE EXCESS -1.4 mmol/L (-2.0-3.0); ABG OXYGEN SATURATION 86.7 % (94.0-98.0); ABG PCO2 45.2 mmHg (32.0-45.0); ABG PO2 59.2 mmHg (83.0-108.0); ABG TOTAL HEMOGLOBIN 12.3 G/dL (12.0-16.0); COHb 1.5 % (0.5-1.5); MetHb 0.3 % (0.0-1.5); O2Hb 85.1 % (94.0-97.0); PEEP,BG 5 cm H2O; SITE, ABG LEFT RADIAL; VT, ABG 500 mL
[2025-04-03 04:55] LABS: BASOPHILS % (AUTO) 1.1 % (0.0-2.0); HEMATOCRIT 34 % (33-45); LYMPHOCYTES # (AUTO) 0.1 K/uL (0.8-4.8); LYMPHOCYTES % (AUTO) 4.5 % (20.0-44.0); MEAN CORPUSCULAR HEMOGLOBIN 28 PG (26.0-33.0); MEAN CORPUSCULAR HGB CONC 33 g/dl (31.0-36.0); MEAN CORPUSCULAR VOLUME 86 fL (82-100); MONOCYTES # (AUTO) 0.2 K/uL (0.1-1.30); MONOCYTES % (AUTO) 10.5 % (2.0-12.0); NEUTROPHILS # (AUTO) 1.9 K/uL (1.8-8.9); NEUTROPHILS % (AUTO) 83.9 % (43.0-81.0); RED BLOOD CELL COUNT(AUTO) 3.93 MIL/uL (4.0-5.2); RED CELL DISTRIBUTION WIDTH 33.4 % (11.5-15.0); WHITE BLOOD COUNT (AUTO) 2.2 K/uL (4.3-11.0)
[2025-04-03 04:56] LABS: D-DIMER 3.01 mg/L(FEU (0.17-0.50); INR 1.41 (0.91-1.10); PARTIAL THROMBOPLASTIN TIME 32.6 SEC (24.3-34.3); PROTHROMBIN TIME 14.6 SECS (9.2-11.1)
[2025-04-03 04:57] LABS: CALCIUM, SERUM 9.1 mg/dL (8.5-10.1); CREATININE 0.9 mg/dL (0.6-1.3); POTASSIUM 3.6 mmol/L (3.5-5.1)
[2025-04-03 05:16] LABS: PLATELET COUNT (AUTO) 30 K/uL (150-450)
[2025-04-03 05:38] LABS: BAND % (MANUAL) 2 % (0.0-5.0); LYMPHOCYTES % (MANUAL) 7 % (16-48); MONOCYTES % (MANUAL) 9 % (0-11.0); NEUTROPHILS % (MANUAL) 82 (42-76)
[2025-04-03 05:40] LABS: PLATELET ESTIMATE DECREASED
[2025-04-03 05:41] LABS: ANISOCYTOSIS 1+; TARGET CELLS 1+
[2025-04-03] MEDS: FERROUS SULFATE (325 MG) 325 MG/TAB TABLET PO SCH (07:46)
[2025-04-03] MEDS: PANTOPRAZOLE 40 MG VIAL IV SCH (08:35)
[2025-04-03] MEDS: FUROSEMIDE 40 MG/4 ML VIAL IV SCH (09:53)
[2025-04-03] MEDS: IV NS 0.9% 1,000 ML IV PRN (10:25)
[2025-04-03] MEDS ORDERED: VASOPRESSIN INJ 40 UNIT in IV NS 0.9% 38 ML IV PRN (11:30)
[2025-04-03] MEDS: HYDROCORTISONE SOD SUCCINATE 100 MG/2 ML VIAL IV SCH (11:35)
[2025-04-03] MEDS ORDERED: ETOMIDATE 2 MG/ML VIAL IV ONE (11:42)
[2025-04-03] MEDS ORDERED: EPINEPHRINE (1:1000) 10 MG in IV NS 0.9% 240 ML IV PRN (12:00)
[2025-04-03] MEDS: VANCOMYCIN HCL 1.25 GM in IV D5W 250 ML IV ONE (12:31)
[2025-04-03] MEDS ORDERED: ENOXAPARIN SODIUM 40 MG/0.4 ML DISP.SYRIN SQ SCH (13:00)
[2025-04-03 14:10] LABS: *ANCA ATYPICAL p-ANCA <1:20 titer (Neg:<1:20); *ANCA CYTOPLASMIC (C-ANCA) <1:20 titer (Neg:<1:20); *ANCA PERINUCLEAR (P-ANCA) <1:20 titer (Neg:<1:20)
[2025-04-03] MEDS ORDERED: IOHEXOL-350 100 ML VIAL IV ONE (14:24)
[2025-04-04] VITALS (96 sets, daily range): BP systolic 89–119; BP diastolic 59–105; TEMP 97–97.6; O2SAT 100
[2025-04-04] MEDS: VANCOMYCIN 500 MG in IV D5W 100ml IV SCH (00:08)
[2025-04-04 05:02] LABS: HEMATOCRIT 37 % (33-45); HEMOGLOBIN 11.9 g/dL (11.5-14.8); LYMPHOCYTES # (AUTO) 0.3 K/uL (0.8-4.8); LYMPHOCYTES % (AUTO) 3.4 % (20.0-44.0); MEAN CORPUSCULAR HEMOGLOBIN 28 PG (26.0-33.0); MEAN CORPUSCULAR HGB CONC 33 g/dl (31.0-36.0); MEAN CORPUSCULAR VOLUME 85 fL (82-100); MONOCYTES # (AUTO) 0.5 K/uL (0.1-1.30); MONOCYTES % (AUTO) 5.2 % (2.0-12.0); NEUTROPHILS # (AUTO) 9.3 K/uL (1.8-8.9); NEUTROPHILS % (AUTO) 91.4 % (43.0-81.0); RED BLOOD CELL COUNT(AUTO) 4.32 MIL/uL (4.0-5.2); RED CELL DISTRIBUTION WIDTH 33.4 % (11.5-15.0); WHITE BLOOD COUNT (AUTO) 10.2 K/uL (4.3-11.0)
[2025-04-04 05:13] LABS: ALBUMIN 2.3 g/dL (3.4-5.0); BILIRUBIN,TOTAL 2.8 mg/dL (0.2-1.0); CALCIUM, SERUM 9.2 mg/dL (8.5-10.1); CREATININE 0.9 mg/dL (0.6-1.3); PHOSPHORUS 2.6 mg/dL (2.5-4.9); POTASSIUM 3.9 mmol/L (3.5-5.1); TOTAL PROTEIN, SERUM 5.7 g/dL (6.4-8.2)
[2025-04-04 05:19] LABS: PLATELET COUNT (AUTO) 26 K/uL (150-450)
[2025-04-04 05:50] LABS: LYMPHOCYTES % (MANUAL) 3 % (16-48); MONOCYTES % (MANUAL) 7 % (0-11.0); NEUTROPHILS % (MANUAL) 90 (42-76); PLATELET ESTIMATE DECREASED
[2025-04-04 05:51] LABS: ANISOCYTOSIS 1+; TARGET CELLS 1+
[2025-04-04] MEDS ORDERED: ETOMIDATE 2 MG/ML VIAL IV ONE (06:39)
[2025-04-04 11:20] LABS: ABG BASE EXCESS 0.8 mmol/L (-2.0-3.0); ABG OXYGEN SATURATION 98.7 % (94.0-98.0); ABG PCO2 27.5 mmHg (32.0-45.0); ABG PH 7.529 (7.350-7.450); ABG PO2 108.6 mmHg (83.0-108.0); COHb 1.6 % (0.5-1.5); MetHb 0.3 % (0.0-1.5); O2Hb 96.8 % (94.0-97.0); PEEP,BG 5 cm H2O; SITE, ABG RIGHT RADIAL; VT, ABG 500 mL
[2025-04-04 14:07] LABS: ANTI-MPO ANTIBODIES <0.2 units (0.0-0.9); ANTI-PR3 ANTIBODIES <0.2 units (0.0-0.9)
[2025-04-05] VITALS (97 sets, daily range): BP systolic 96–125; BP diastolic 55–93; TEMP 97.2–97.7; O2SAT 98–100
[2025-04-05 04:48] LABS: CALCIUM, SERUM 9.4 mg/dL (8.5-10.1); CREATININE 0.8 mg/dL (0.6-1.3); POTASSIUM 3.9 mmol/L (3.5-5.1)
[2025-04-05 05:02] LABS: INR 1.17 (0.91-1.10); PARTIAL THROMBOPLASTIN TIME 35.8 SEC (24.3-34.3); PROTHROMBIN TIME 12.3 SECS (9.2-11.1)
[2025-04-05 05:04] LABS: D-DIMER 20.07 mg/L(FEU (0.17-0.50)
[2025-04-05 05:14] LABS: BASOPHILS % (AUTO) 0.2 % (0.0-2.0); EOSINOPHILS % (AUTO) 0.1 % (0.0-6.0); HEMATOCRIT 33 % (33-45); HEMOGLOBIN 10.8 g/dL (11.5-14.8); LYMPHOCYTES # (AUTO) 0.3 K/uL (0.8-4.8); LYMPHOCYTES % (AUTO) 2.5 % (20.0-44.0); MEAN CORPUSCULAR HEMOGLOBIN 27 PG (26.0-33.0); MEAN CORPUSCULAR HGB CONC 33 g/dl (31.0-36.0); MEAN CORPUSCULAR VOLUME 84 fL (82-100); MONOCYTES # (AUTO) 0.5 K/uL (0.1-1.30); MONOCYTES % (AUTO) 4.7 % (2.0-12.0); NEUTROPHILS # (AUTO) 10.8 K/uL (1.8-8.9); NEUTROPHILS % (AUTO) 92.5 % (43.0-81.0); RED BLOOD CELL COUNT(AUTO) 3.96 MIL/uL (4.0-5.2); WHITE BLOOD COUNT (AUTO) 11.6 K/uL (4.3-11.0)
[2025-04-05 05:34] LABS: PLATELET COUNT (AUTO) 43 K/uL (150-450)
[2025-04-05 06:00] LABS: LYMPHOCYTES % (MANUAL) 2 % (16-48); MONOCYTES % (MANUAL) 5 % (0-11.0); NEUTROPHILS % (MANUAL) 93 (42-76)
[2025-04-05 06:01] LABS: PLATELET ESTIMATE DECREASED; TARGET CELLS 1+
[2025-04-05 06:02] LABS: ANISOCYTOSIS 1+
[2025-04-05 08:10] LABS: ABG BASE EXCESS 2.1 mmol/L (-2.0-3.0); ABG OXYGEN SATURATION 98.8 % (94.0-98.0); ABG PCO2 36.8 mmHg (32.0-45.0); ABG PH 7.463 (7.350-7.450); ABG TOTAL HEMOGLOBIN 12.2 G/dL (12.0-16.0); COHb 1.3 % (0.5-1.5); MetHb 0.4 % (0.0-1.5); O2Hb 97.1 % (94.0-97.0); PEEP,BG 5 cm H2O; SITE, ABG RIGHT RADIAL; VT, ABG 475 mL
[2025-04-05] MEDS: JEVITY 1.5 CAL LIQUID 1,000 ML BOTTLE GT PRN (12:27)
[2025-04-05] MEDS: IV NS 0.9% 1,000 ML IV PRN (13:02)
[2025-04-06] VITALS (81 sets, daily range): BP systolic 102–122; BP diastolic 56–88; TEMP 97–98.4; O2SAT 97–100
[2025-04-06 04:40] LABS: BASOPHILS % (AUTO) 0.1 % (0.0-2.0); HEMOGLOBIN 9.5 g/dL (11.5-14.8); MEAN CORPUSCULAR HEMOGLOBIN 28 PG (26.0-33.0); MONOCYTES # (AUTO) 0.5 K/uL (0.1-1.30); RED BLOOD CELL COUNT(AUTO) 3.47 MIL/uL (4.0-5.2)
[2025-04-06 04:46] LABS: CALCIUM, SERUM 9.1 mg/dL (8.5-10.1); CARBON DIOXIDE 27 mmol/L (21-32); CHLORIDE 104 mmol/L (98-107); CREATININE 0.6 mg/dL (0.6-1.3); GLUCOSE 152 mg/dL (74-106); POTASSIUM 3.8 mmol/L (3.5-5.1); SODIUM SERUM 136 mmol/L (136-145); UREA NITROGEN, BLOOD 21 mg/dL (7-18)
[2025-04-06 04:48] LABS: PHOSPHORUS 2.2 mg/dL (2.5-4.9)
[2025-04-06 04:55] LABS: HEMATOCRIT 29 % (33-45); LYMPHOCYTES # (AUTO) 0.2 K/uL (0.8-4.8); LYMPHOCYTES % (AUTO) 1.4 % (20.0-44.0); MEAN CORPUSCULAR HGB CONC 32 g/dl (31.0-36.0); MEAN CORPUSCULAR VOLUME 85 fL (82-100); MONOCYTES % (AUTO) 4.4 % (2.0-12.0); NEUTROPHILS # (AUTO) 10.7 K/uL (1.8-8.9); NEUTROPHILS % (AUTO) 94.1 % (43.0-81.0); RED CELL DISTRIBUTION WIDTH 32.6 % (11.5-15.0); WHITE BLOOD COUNT (AUTO) 11.3 K/uL (4.3-11.0)
[2025-04-06 05:15] LABS: PLATELET COUNT (AUTO) 21 K/uL (150-450)
[2025-04-06 05:50] LABS: ANISOCYTOSIS 1+; HYPOCHROMASIA 1+; LYMPHOCYTES % (MANUAL) 1 % (16-48); MONOCYTES % (MANUAL) 5 % (0-11.0); NEUTROPHILS % (MANUAL) 94 (42-76); OVALOCYTES 1+; PLATELET ESTIMATE DECREASED; TARGET CELLS 1+
[2025-04-06] MEDS: PANTOPRAZOLE 40 MG/PACK PACK GT SCH (08:46)
[2025-04-06] MEDS: POTASSIUM PHOSPHATE MM 5 MMOL in IV NS 0.9% 100 ML IV SCH (11:03)
[2025-04-06 13:44] LABS: INR 1.15 (0.91-1.10); PARTIAL THROMBOPLASTIN TIME 30.9 SEC (24.3-34.3); PROTHROMBIN TIME 12.1 SECS (9.2-11.1)
[2025-04-06 13:53] LABS: D-DIMER 18.95 mg/L(FEU (0.17-0.50)
[2025-04-06] MEDS: IV NS 0.9% 1,000 ML IV PRN (17:29)
[2025-04-06] MEDS: BLOOD SUGAR DIAGNOSTIC 1 EACH STRIP IN SCH (19:08)
[2025-04-07] VITALS (42 sets, daily range): BP systolic 105–124; BP diastolic 62–91; TEMP 98.1–99.7; O2SAT 93–100
[2025-04-07 04:10] LABS: LYMPHOCYTES # (AUTO) 0.1 K/uL (0.8-4.8); MEAN CORPUSCULAR HGB CONC 33 g/dl (31.0-36.0); MONOCYTES % (AUTO) 6.8 % (2.0-12.0); NEUTROPHILS # (AUTO) 7.5 K/uL (1.8-8.9)
[2025-04-07 04:21] LABS: ALBUMIN 2.2 g/dL (3.4-5.0); BILIRUBIN,TOTAL 1.6 mg/dL (0.2-1.0); CALCIUM, SERUM 9.4 mg/dL (8.5-10.1); CREATININE 0.6 mg/dL (0.6-1.3); MAGNESIUM 2.2 mg/dL (1.8-2.4); PHOSPHORUS 2.1 mg/dL (2.5-4.9); TOTAL PROTEIN, SERUM 5.4 g/dL (6.4-8.2)
[2025-04-07 04:22] LABS: EOSINOPHILS % (AUTO) 0.1 % (0.0-6.0); HEMATOCRIT 28 % (33-45); HEMOGLOBIN 9.4 g/dL (11.5-14.8); LYMPHOCYTES % (AUTO) 1.2 % (20.0-44.0); MEAN CORPUSCULAR HEMOGLOBIN 28 PG (26.0-33.0); MEAN CORPUSCULAR VOLUME 84 fL (82-100); MONOCYTES # (AUTO) 0.6 K/uL (0.1-1.30); NEUTROPHILS % (AUTO) 91.9 % (43.0-81.0); RED BLOOD CELL COUNT(AUTO) 3.39 MIL/uL (4.0-5.2); RED CELL DISTRIBUTION WIDTH 32.6 % (11.5-15.0); WHITE BLOOD COUNT (AUTO) 8.2 K/uL (4.3-11.0)
[2025-04-07 04:32] LABS: INR 1.16 (0.91-1.10); PARTIAL THROMBOPLASTIN TIME 30.8 SEC (24.3-34.3); PROTHROMBIN TIME 12.2 SECS (9.2-11.1)
[2025-04-07 04:33] LABS: PLATELET COUNT (AUTO) 18 K/uL (150-450)
[2025-04-07 04:34] LABS: D-DIMER 17.06 mg/L(FEU (0.17-0.50)
[2025-04-07 05:11] LABS: LYMPHOCYTES % (MANUAL) 2 % (16-48); MONOCYTES % (MANUAL) 8 % (0-11.0); NEUTROPHILS % (MANUAL) 90 (42-76); PLATELET ESTIMATE DECREASED
[2025-04-07 05:12] LABS: ANISOCYTOSIS 1+; TARGET CELLS 1+
[2025-04-07] MEDS: PANTOPRAZOLE 40 MG VIAL IV SCH (08:43)
[2025-04-07 09:03] LABS: ABG BASE EXCESS 2.2 mmol/L (-2.0-3.0); ABG PCO2 25.4 mmHg (32.0-45.0); ABG PH 7.569 (7.350-7.450); ABG PO2 92.3 mmHg (83.0-108.0); PEEP,BG 5 cm H2O; SITE, ABG RIGHT RADIAL
[2025-04-07 12:54] LABS: ABG BASE EXCESS 1.3 mmol/L (-2.0-3.0); ABG OXYGEN SATURATION 93.5 % (94.0-98.0); ABG PCO2 31.5 mmHg (32.0-45.0); ABG PO2 67.3 mmHg (83.0-108.0); ABG TOTAL HEMOGLOBIN 11.3 G/dL (12.0-16.0); MetHb 0.1 % (0.0-1.5); O2Hb 92.5 % (94.0-97.0); SITE, ABG LEFT RADIAL
[2025-04-07] MEDS: ACETAMINOPHEN 325 MG TABLET PO ONE (14:00)
[2025-04-07] MEDS: VANCOMYCIN 750 MG in IV D5W 250 ML IV SCH (14:04)
[2025-04-07] MEDS: diphenhydrAMINE HCL 50 MG/ML VIAL IV ONE (14:35)
[2025-04-07] MEDS: ACETAMINOPHEN 325 MG/SUPP.RECT RC ONE (14:53)
[2025-04-07] MEDS ORDERED: ACETAMINOPHEN 650 MG/SUPP.RECT RC ONE (15:00)
[2025-04-07] MEDS: Sodium Phosphate 15 MMOL in IV NS 0.9% 245 ML IV SCH (16:54)
[2025-04-08] VITALS (39 sets, daily range): BP systolic 95–122; BP diastolic 64–87; TEMP 97.5–98.3; O2SAT 92–100
[2025-04-08 04:11] LABS: BASOPHILS % (AUTO) 0.1 % (0.0-2.0); HEMATOCRIT 33 % (33-45); HEMOGLOBIN 10.6 g/dL (11.5-14.8); LYMPHOCYTES # (AUTO) 0.3 K/uL (0.8-4.8); LYMPHOCYTES % (AUTO) 3.4 % (20.0-44.0); MEAN CORPUSCULAR HEMOGLOBIN 28 PG (26.0-33.0); MEAN CORPUSCULAR HGB CONC 33 g/dl (31.0-36.0); MEAN CORPUSCULAR VOLUME 86 fL (82-100); MONOCYTES # (AUTO) 0.6 K/uL (0.1-1.30); MONOCYTES % (AUTO) 7.5 % (2.0-12.0); NEUTROPHILS # (AUTO) 7.7 K/uL (1.8-8.9); RED CELL DISTRIBUTION WIDTH 32.6 % (11.5-15.0); WHITE BLOOD COUNT (AUTO) 8.7 K/uL (4.3-11.0)
[2025-04-08 04:19] LABS: ALBUMIN 2.4 g/dL (3.4-5.0); BILIRUBIN,TOTAL 2.4 mg/dL (0.2-1.0); CALCIUM, SERUM 9.2 mg/dL (8.5-10.1); CREATININE 0.7 mg/dL (0.6-1.3); MAGNESIUM 2.3 mg/dL (1.8-2.4); PHOSPHORUS 3.2 mg/dL (2.5-4.9); POTASSIUM 4.4 mmol/L (3.5-5.1); TOTAL PROTEIN, SERUM 5.9 g/dL (6.4-8.2)
[2025-04-08 04:20] LABS: INR 1.3 (0.91-1.10); PROTHROMBIN TIME 13.5 SECS (9.2-11.1)
[2025-04-08 04:50] LABS: PLATELET COUNT (AUTO) 39 K/uL (150-450)
[2025-04-08 05:16] LABS: ANISOCYTOSIS 1+; LYMPHOCYTES % (MANUAL) 5 % (16-48); MONOCYTES % (MANUAL) 5 % (0-11.0); NEUTROPHILS % (MANUAL) 90 (42-76); PLATELET ESTIMATE DECREASED
[2025-04-08 05:17] LABS: TARGET CELLS 1+
[2025-04-08] MEDS ORDERED: TPN/PPN PER PHARMACY IV PRN (08:30)
[2025-04-08] MEDS ORDERED: DEXTROSE 50%-WATER 50 ML DISP.SYRIN IV PRN (09:00)
[2025-04-08] MEDS: BLOOD SUGAR DIAGNOSTIC 1 EACH STRIP IN SCH (11:15)
[2025-04-08] MEDS: diphenhydrAMINE HCL 50 MG/ML VIAL IV ONE (13:09)
[2025-04-08] MEDS: ACETAMINOPHEN 325 MG TABLET PO ONE (13:10)
[2025-04-08] MEDS: TPN BAG #1 IV SCH (14:13)
[2025-04-08] MEDS: INSULIN REGULAR, HUMAN 100 UNIT/ML 3 ML VIAL SQ PRN (17:13)
[2025-04-09] VITALS (37 sets, daily range): BP systolic 101–127; BP diastolic 49–82; TEMP 97.5–98.3; O2SAT 92–100
[2025-04-09 04:33] LABS: BASOPHILS % (AUTO) 0.2 % (0.0-2.0); EOSINOPHILS % (AUTO) 0.1 % (0.0-6.0); HEMATOCRIT 32 % (33-45); HEMOGLOBIN 10.6 g/dL (11.5-14.8); LYMPHOCYTES # (AUTO) 0.1 K/uL (0.8-4.8); LYMPHOCYTES % (AUTO) 1.4 % (20.0-44.0); MEAN CORPUSCULAR HEMOGLOBIN 29 PG (26.0-33.0); MEAN CORPUSCULAR HGB CONC 34 g/dl (31.0-36.0); MEAN CORPUSCULAR VOLUME 85 fL (82-100); MONOCYTES # (AUTO) 0.7 K/uL (0.1-1.30); MONOCYTES % (AUTO) 7.3 % (2.0-12.0); NEUTROPHILS # (AUTO) 8.7 K/uL (1.8-8.9); PLATELET COUNT (AUTO) 57 K/uL (150-450); RED CELL DISTRIBUTION WIDTH 31.9 % (11.5-15.0); WHITE BLOOD COUNT (AUTO) 9.5 K/uL (4.3-11.0)
[2025-04-09 04:35] LABS: CALCIUM, SERUM 9.1 mg/dL (8.5-10.1); CREATININE 0.7 mg/dL (0.6-1.3); POTASSIUM 4.1 mmol/L (3.5-5.1)
[2025-04-09 04:47] LABS: INR 1.35 (0.91-1.10); PARTIAL THROMBOPLASTIN TIME 27.3 SEC (24.3-34.3)
[2025-04-09 04:51] LABS: D-DIMER 10.69 mg/L(FEU (0.17-0.50)
[2025-04-09 05:43] LABS: LYMPHOCYTES % (MANUAL) 2 % (16-48); MONOCYTES % (MANUAL) 6 % (0-11.0); NEUTROPHILS % (MANUAL) 92 (42-76)
[2025-04-09 05:44] LABS: ANISOCYTOSIS 1+; PLATELET ESTIMATE DECREASED; TARGET CELLS 1+
[2025-04-09 08:27] LABS: MAGNESIUM 2.4 mg/dL (1.8-2.4); PHOSPHORUS 2.5 mg/dL (2.5-4.9)
[2025-04-09] MEDS ORDERED: HYDROCORTISONE SOD SUCCINATE 100 MG/2 ML VIAL IV SCH (09:00)
[2025-04-09] MEDS: Sodium Phosphate 15 MMOL in IV NS 0.9% 245 ML IV SCH (11:41)
[2025-04-09] MEDS: TPN BAG #2 IV SCH (14:54)
[2025-04-10] VITALS (32 sets, daily range): BP systolic 105–130; BP diastolic 63–80; TEMP 97–98.2; O2SAT 89–100
[2025-04-10 04:32] LABS: BASOPHILS % (AUTO) 0.1 % (0.0-2.0); HEMATOCRIT 31 % (33-45); HEMOGLOBIN 10.1 g/dL (11.5-14.8); LYMPHOCYTES # (AUTO) 0.1 K/uL (0.8-4.8); LYMPHOCYTES % (AUTO) 0.7 % (20.0-44.0); MEAN CORPUSCULAR HEMOGLOBIN 28 PG (26.0-33.0); MEAN CORPUSCULAR HGB CONC 33 g/dl (31.0-36.0); MEAN CORPUSCULAR VOLUME 87 fL (82-100); MONOCYTES # (AUTO) 0.5 K/uL (0.1-1.30); MONOCYTES % (AUTO) 4.4 % (2.0-12.0); NEUTROPHILS # (AUTO) 9.9 K/uL (1.8-8.9); NEUTROPHILS % (AUTO) 94.8 % (43.0-81.0); PLATELET COUNT (AUTO) 61 K/uL (150-450); RED BLOOD CELL COUNT(AUTO) 3.56 MIL/uL (4.0-5.2); RED CELL DISTRIBUTION WIDTH 32.1 % (11.5-15.0); WHITE BLOOD COUNT (AUTO) 10.5 K/uL (4.3-11.0)
[2025-04-10 04:44] LABS: BILIRUBIN,TOTAL 1.3 mg/dL (0.2-1.0); CALCIUM, SERUM 8.9 mg/dL (8.5-10.1); CREATININE 0.6 mg/dL (0.6-1.3); MAGNESIUM 2.2 mg/dL (1.8-2.4); POTASSIUM 3.6 mmol/L (3.5-5.1); TOTAL PROTEIN, SERUM 5.3 g/dL (6.4-8.2)
[2025-04-10 05:34] LABS: ANISOCYTOSIS 1+; LYMPHOCYTES % (MANUAL) 1 % (16-48); MONOCYTES % (MANUAL) 2 % (0-11.0); NEUTROPHILS % (MANUAL) 97 (42-76); PLATELET ESTIMATE DECREASED
[2025-04-10 05:35] LABS: HYPOCHROMASIA 1+; TARGET CELLS 1+
[2025-04-10] MEDS ORDERED: TPN BAG #3 IV SCH (07:21)
[2025-04-10] MEDS: TPN#3 IV SCH (08:10)
[2025-04-10] MEDS: Sodium Phosphate 15 MMOL in IV NS 0.9% 245 ML IV SCH (10:00)
[2025-04-10] MEDS: TPN#4 IV SCH (23:59)
[2025-04-11] VITALS (32 sets, daily range): BP systolic 109–132; BP diastolic 68–89; TEMP 97.9–98.2; O2SAT 91–100
[2025-04-11 04:13] LABS: BASOPHILS % (AUTO) 0.3 % (0.0-2.0); HEMATOCRIT 33 % (33-45); HEMOGLOBIN 10.3 g/dL (11.5-14.8); LYMPHOCYTES # (AUTO) 0.1 K/uL (0.8-4.8); LYMPHOCYTES % (AUTO) 0.9 % (20.0-44.0); MEAN CORPUSCULAR HEMOGLOBIN 27 PG (26.0-33.0); MEAN CORPUSCULAR HGB CONC 31 g/dl (31.0-36.0); MEAN CORPUSCULAR VOLUME 88 fL (82-100); MONOCYTES # (AUTO) 0.5 K/uL (0.1-1.30); MONOCYTES % (AUTO) 4.3 % (2.0-12.0); NEUTROPHILS # (AUTO) 11.4 K/uL (1.8-8.9); NEUTROPHILS % (AUTO) 94.5 % (43.0-81.0); PLATELET COUNT (AUTO) 71 K/uL (150-450); RED BLOOD CELL COUNT(AUTO) 3.76 MIL/uL (4.0-5.2); RED CELL DISTRIBUTION WIDTH 31.8 % (11.5-15.0); WHITE BLOOD COUNT (AUTO) 12.1 K/uL (4.3-11.0)
[2025-04-11 04:29] LABS: CALCIUM, SERUM 9.5 mg/dL (8.5-10.1); CARBON DIOXIDE 24 mmol/L (21-32); CHLORIDE 110 mmol/L (98-107); CREATININE 0.6 mg/dL (0.6-1.3); GLUCOSE 165 mg/dL (74-106); POTASSIUM 3.3 mmol/L (3.5-5.1); SODIUM SERUM 142 mmol/L (136-145); UREA NITROGEN, BLOOD 31 mg/dL (7-18)
[2025-04-11 04:33] LABS: MAGNESIUM 2.2 mg/dL (1.8-2.4); PHOSPHORUS 1.9 mg/dL (2.5-4.9)
[2025-04-11 05:19] LABS: LYMPHOCYTES % (MANUAL) 2 % (16-48); MONOCYTES % (MANUAL) 4 % (0-11.0); NEUTROPHILS % (MANUAL) 94 (42-76)
[2025-04-11 05:20] LABS: ANISOCYTOSIS 2+; PLATELET ESTIMATE DECREASED
[2025-04-11 10:18] LABS: INR 1.22 (0.91-1.10); PARTIAL THROMBOPLASTIN TIME 27.5 SEC (24.3-34.3); PROTHROMBIN TIME 12.8 SECS (9.2-11.1)
[2025-04-11 10:22] LABS: D-DIMER 16.55 mg/L(FEU (0.17-0.50)
[2025-04-11] MEDS: POTASSIUM PHOSPHATE MM 15 MMOL in IV NS 0.9% 250 ML IV SCH (10:26)
[2025-04-11] MEDS: BISACODYL SUPP (10 MG) 10 MG/SUPP.RECT SUPP.RECT RC PRN (16:53)
[2025-04-11] MEDS: TPN # 5 IV SCH (17:24)
[2025-04-12] VITALS (31 sets, daily range): BP systolic 108–151; BP diastolic 67–92; TEMP 96.3–98.2; O2SAT 90–100
[2025-04-12 06:29] LABS: ALBUMIN 2.2 g/dL (3.4-5.0); BILIRUBIN,TOTAL 1.1 mg/dL (0.2-1.0); CALCIUM, SERUM 9.7 mg/dL (8.5-10.1); CREATININE 0.5 mg/dL (0.6-1.3); MAGNESIUM 2.4 mg/dL (1.8-2.4); PHOSPHORUS 1.9 mg/dL (2.5-4.9); POTASSIUM 3.5 mmol/L (3.5-5.1); TOTAL PROTEIN, SERUM 5.7 g/dL (6.4-8.2)
[2025-04-12 06:34] LABS: INR 1.15 (0.91-1.10); PARTIAL THROMBOPLASTIN TIME 25.3 SEC (24.3-34.3); PROTHROMBIN TIME 12.1 SECS (9.2-11.1)
[2025-04-12 06:36] LABS: BASOPHILS # (AUTO) 0.1 K/uL (0.0-0.2); BASOPHILS % (AUTO) 0.5 % (0.0-2.0); EOSINOPHILS % (AUTO) 0.1 % (0.0-6.0); HEMATOCRIT 34 % (33-45); HEMOGLOBIN 10.7 g/dL (11.5-14.8); LYMPHOCYTES # (AUTO) 0.2 K/uL (0.8-4.8); LYMPHOCYTES % (AUTO) 1.3 % (20.0-44.0); MEAN CORPUSCULAR HEMOGLOBIN 28 PG (26.0-33.0); MEAN CORPUSCULAR HGB CONC 32 g/dl (31.0-36.0); MEAN CORPUSCULAR VOLUME 88 fL (82-100); MONOCYTES # (AUTO) 0.4 K/uL (0.1-1.30); MONOCYTES % (AUTO) 2.7 % (2.0-12.0); NEUTROPHILS # (AUTO) 12.4 K/uL (1.8-8.9); NEUTROPHILS % (AUTO) 95.4 % (43.0-81.0); RED BLOOD CELL COUNT(AUTO) 3.86 MIL/uL (4.0-5.2); RED CELL DISTRIBUTION WIDTH 32.5 % (11.5-15.0)
[2025-04-12 06:52] LABS: D-DIMER 16.81 mg/L(FEU (0.17-0.50); PLATELET COUNT (AUTO) 70 K/uL (150-450)
[2025-04-12 13:22] LABS: ANISOCYTOSIS 1+; LYMPHOCYTES % (MANUAL) 1 % (16-48); MONOCYTES % (MANUAL) 1 % (0-11.0); NEUTROPHILS % (MANUAL) 98 (42-76); PLATELET ESTIMATE DECREASED; TARGET CELLS 1+
[2025-04-12] MEDS: POTASSIUM PHOSPHATE MM 15 MMOL in IV NS 0.9% 250 ML IV SCH (15:05)
[2025-04-12] MEDS: TPN # 6 IV SCH (18:28)
[2025-04-12] MEDS: Sodium Phosphate 15 MMOL in IV NS 0.9% 245 ML IV SCH (20:00)
[2025-04-13] VITALS (31 sets, daily range): BP systolic 92–132; BP diastolic 56–99; TEMP 97–97.7; O2SAT 88–100
[2025-04-13] MEDS ORDERED: WATER FOR INJECTION,STERILE 10 ML ONE (00:44)
[2025-04-13 04:46] LABS: BASOPHILS % (AUTO) 0.1 % (0.0-2.0); HEMATOCRIT 33 % (33-45); HEMOGLOBIN 10.8 g/dL (11.5-14.8); LYMPHOCYTES # (AUTO) 0.1 K/uL (0.8-4.8); LYMPHOCYTES % (AUTO) 1.3 % (20.0-44.0); MEAN CORPUSCULAR HEMOGLOBIN 29 PG (26.0-33.0); MEAN CORPUSCULAR HGB CONC 33 g/dl (31.0-36.0); MEAN CORPUSCULAR VOLUME 88 fL (82-100); MONOCYTES # (AUTO) 0.4 K/uL (0.1-1.30); MONOCYTES % (AUTO) 3.7 % (2.0-12.0); NEUTROPHILS # (AUTO) 9.6 K/uL (1.8-8.9); NEUTROPHILS % (AUTO) 94.9 % (43.0-81.0); PLATELET COUNT (AUTO) 72 K/uL (150-450); RED BLOOD CELL COUNT(AUTO) 3.71 MIL/uL (4.0-5.2); RED CELL DISTRIBUTION WIDTH 33.2 % (11.5-15.0); WHITE BLOOD COUNT (AUTO) 10.1 K/uL (4.3-11.0)
[2025-04-13 05:52] LABS: ANISOCYTOSIS 1+; LYMPHOCYTES % (MANUAL) 3 % (16-48); MONOCYTES % (MANUAL) 3 % (0-11.0); NEUTROPHILS % (MANUAL) 94 (42-76); PLATELET ESTIMATE DECREASED
[2025-04-13 05:53] LABS: TARGET CELLS 1+
[2025-04-13 14:52] LABS: CALCIUM, SERUM 8.7 mg/dL (8.5-10.1); CREATININE 0.5 mg/dL (0.6-1.3); MAGNESIUM 2.2 mg/dL (1.8-2.4); PHOSPHORUS 2.1 mg/dL (2.5-4.9); POTASSIUM 3.5 mmol/L (3.5-5.1)
[2025-04-13] MEDS: TPN # 7 IV SCH (19:49)
[2025-04-13 20:41] LABS: ABG BASE EXCESS -0.9 mmol/L (-2.0-3.0); ABG OXYGEN SATURATION 93.5 % (94.0-98.0); ABG PCO2 32.8 mmHg (32.0-45.0); ABG PH 7.454 (7.350-7.450); ABG PO2 70.8 mmHg (83.0-108.0); ABG TOTAL HEMOGLOBIN 11.1 G/dL (12.0-16.0); MetHb 0.1 % (0.0-1.5); O2Hb 92.5 % (94.0-97.0); SITE, ABG LEFT RADIAL
[2025-04-14] VITALS (37 sets, daily range): BP systolic 99–125; BP diastolic 67–87; TEMP 97.4–97.8; O2SAT 0–100
[2025-04-14 05:16] LABS: BASOPHILS % (AUTO) 0.1 % (0.0-2.0); CALCIUM, SERUM 9.1 mg/dL (8.5-10.1); CREATININE 0.4 mg/dL (0.6-1.3); EOSINOPHILS % (AUTO) 0.1 % (0.0-6.0); HEMATOCRIT 31 % (33-45); HEMOGLOBIN 10.2 g/dL (11.5-14.8); LYMPHOCYTES # (AUTO) 0.1 K/uL (0.8-4.8); LYMPHOCYTES % (AUTO) 0.9 % (20.0-44.0); MAGNESIUM 2.3 mg/dL (1.8-2.4); MEAN CORPUSCULAR HEMOGLOBIN 29 PG (26.0-33.0); MEAN CORPUSCULAR HGB CONC 33 g/dl (31.0-36.0); MEAN CORPUSCULAR VOLUME 88 fL (82-100); MONOCYTES # (AUTO) 0.3 K/uL (0.1-1.30); MONOCYTES % (AUTO) 3.1 % (2.0-12.0); NEUTROPHILS # (AUTO) 9.4 K/uL (1.8-8.9); NEUTROPHILS % (AUTO) 95.8 % (43.0-81.0); PHOSPHORUS 1.7 mg/dL (2.5-4.9); PLATELET COUNT (AUTO) 63 K/uL (150-450); POTASSIUM 3.4 mmol/L (3.5-5.1); RED BLOOD CELL COUNT(AUTO) 3.55 MIL/uL (4.0-5.2); RED CELL DISTRIBUTION WIDTH 32.3 % (11.5-15.0); WHITE BLOOD COUNT (AUTO) 9.8 K/uL (4.3-11.0)
[2025-04-14 05:24] LABS: INR 1.15 (0.91-1.10); PARTIAL THROMBOPLASTIN TIME 25.9 SEC (24.3-34.3); PROTHROMBIN TIME 12.1 SECS (9.2-11.1)
[2025-04-14 05:26] LABS: D-DIMER 15.66 mg/L(FEU (0.17-0.50)
[2025-04-14] MEDS: POTASSIUM PHOSPHATE MM 15 MMOL in IV NS 0.9% 250 ML IV SCH (11:12)
[2025-04-14] MEDS: Sodium Phosphate 15 MMOL in IV NS 0.9% 245 ML IV SCH (15:14)
[2025-04-14] MEDS: TPN #8 IV SCH (20:05)
[2025-04-14] MEDS: POTASSIUM CL. PREMIX PERIPHER. 50 ML IV SCH (21:05)
[2025-04-15] VITALS (32 sets, daily range): BP systolic 104–134; BP diastolic 71–101; TEMP 97.3–97.8; O2SAT 87–100
[2025-04-15 04:26] LABS: HEMATOCRIT 32 % (33-45); HEMOGLOBIN 10.5 g/dL (11.5-14.8); LYMPHOCYTES # (AUTO) 0.2 K/uL (0.8-4.8); LYMPHOCYTES % (AUTO) 1.8 % (20.0-44.0); MEAN CORPUSCULAR HEMOGLOBIN 29 PG (26.0-33.0); MEAN CORPUSCULAR HGB CONC 32 g/dl (31.0-36.0); MEAN CORPUSCULAR VOLUME 89 fL (82-100); MONOCYTES # (AUTO) 0.3 K/uL (0.1-1.30); MONOCYTES % (AUTO) 3.6 % (2.0-12.0); NEUTROPHILS # (AUTO) 7.9 K/uL (1.8-8.9); NEUTROPHILS % (AUTO) 94.6 % (43.0-81.0); PLATELET COUNT (AUTO) 63 K/uL (150-450); RED BLOOD CELL COUNT(AUTO) 3.65 MIL/uL (4.0-5.2); RED CELL DISTRIBUTION WIDTH 31.8 % (11.5-15.0); WHITE BLOOD COUNT (AUTO) 8.4 K/uL (4.3-11.0)
[2025-04-15 04:39] LABS: INR 1.13 (0.91-1.10); PROTHROMBIN TIME 11.9 SECS (9.2-11.1)
[2025-04-15 04:46] LABS: CALCIUM, SERUM 8.9 mg/dL (8.5-10.1); CARBON DIOXIDE 26 mmol/L (21-32); CHLORIDE 108 mmol/L (98-107); CREATININE 0.5 mg/dL (0.6-1.3); GLUCOSE 155 mg/dL (74-106); MAGNESIUM 2.4 mg/dL (1.8-2.4); PHOSPHORUS 2.4 mg/dL (2.5-4.9); POTASSIUM 3.7 mmol/L (3.5-5.1); SODIUM SERUM 137 mmol/L (136-145); UREA NITROGEN, BLOOD 32 mg/dL (7-18)
[2025-04-15 05:18] LABS: LYMPHOCYTES % (MANUAL) 1 % (16-48); MONOCYTES % (MANUAL) 2 % (0-11.0); NEUTROPHILS % (MANUAL) 97 (42-76)
[2025-04-15 05:19] LABS: ANISOCYTOSIS 1+; PLATELET ESTIMATE DECREASED
[2025-04-15 05:20] LABS: HYPOCHROMASIA 1+
[2025-04-15] MEDS: POTASSIUM CL. PREMIX PERIPHER. 50 ML IV SCH (08:42)
[2025-04-15] MEDS: FUROSEMIDE 40 MG/4 ML VIAL IV SCH (08:43)
[2025-04-15] MEDS: METOPROLOL TARTRATE 25 MG TABLET PO SCH (12:00)
[2025-04-15] MEDS: Sodium Phosphate 15 MMOL in IV NS 0.9% 245 ML IV SCH (17:13)
[2025-04-15 17:31] LABS: HEMOGLOBIN 9.7 g/dL (11.5-14.8)
[2025-04-15] MEDS: TPN #9 IV SCH (21:04)
[2025-04-15] MEDS: HEPARIN SODIUM, PORCINE 5000 UNITS/1 ML VIAL SQ SCH (22:05)
[2025-04-16] VITALS (33 sets, daily range): BP systolic 102–135; BP diastolic 70–89; TEMP 97–97.8; O2SAT 88–100
[2025-04-16] MEDS: HYDROCORTISONE SOD SUCCINATE 100 MG/2 ML VIAL ONE (00:58)
[2025-04-16 04:28] LABS: BASOPHILS % (AUTO) 0.1 % (0.0-2.0); EOSINOPHILS % (AUTO) 0.1 % (0.0-6.0); HEMATOCRIT 32 % (33-45); HEMOGLOBIN 10.4 g/dL (11.5-14.8); LYMPHOCYTES # (AUTO) 0.1 K/uL (0.8-4.8); LYMPHOCYTES % (AUTO) 1.9 % (20.0-44.0); MEAN CORPUSCULAR HEMOGLOBIN 29 PG (26.0-33.0); MEAN CORPUSCULAR HGB CONC 33 g/dl (31.0-36.0); MEAN CORPUSCULAR VOLUME 88 fL (82-100); MONOCYTES # (AUTO) 0.4 K/uL (0.1-1.30); MONOCYTES % (AUTO) 6.1 % (2.0-12.0); NEUTROPHILS # (AUTO) 6.6 K/uL (1.8-8.9); NEUTROPHILS % (AUTO) 91.8 % (43.0-81.0); PLATELET COUNT (AUTO) 59 K/uL (150-450); RED BLOOD CELL COUNT(AUTO) 3.61 MIL/uL (4.0-5.2); RED CELL DISTRIBUTION WIDTH 31.7 % (11.5-15.0); WHITE BLOOD COUNT (AUTO) 7.1 K/uL (4.3-11.0)
[2025-04-16 04:45] LABS: ALBUMIN 2.2 g/dL (3.4-5.0); CREATININE 0.4 mg/dL (0.6-1.3); MAGNESIUM 2.3 mg/dL (1.8-2.4); PHOSPHORUS 2.4 mg/dL (2.5-4.9); POTASSIUM 3.3 mmol/L (3.5-5.1); TOTAL PROTEIN, SERUM 5.4 g/dL (6.4-8.2)
[2025-04-16 05:42] LABS: ANISOCYTOSIS 1+; LYMPHOCYTES % (MANUAL) 3 % (16-48); MONOCYTES % (MANUAL) 4 % (0-11.0); NEUTROPHILS % (MANUAL) 93 (42-76); PLATELET ESTIMATE DECREASED
[2025-04-16 05:44] LABS: TARGET CELLS 1+
[2025-04-16] MEDS: FUROSEMIDE 40 MG/4 ML VIAL IV SCH (09:20)
[2025-04-16] MEDS: POTASSIUM PHOSPHATE MM 15 MMOL in IV NS 0.9% 250 ML IV SCH (10:25)
[2025-04-16] MEDS: methylPREDNISolone SOD SUCC 40 MG/ML VIAL IV SCH (19:53)
[2025-04-16] MEDS: POTASSIUM CL. PREMIX PERIPHER. 50 ML IV SCH (20:34)
[2025-04-16] MEDS: TPN #10 IV SCH (22:11)
[2025-04-17] VITALS (32 sets, daily range): BP systolic 98–120; BP diastolic 66–80; TEMP 97–98.1; O2SAT 96–100
[2025-04-17 04:25] LABS: BASOPHILS % (AUTO) 0.1 % (0.0-2.0); HEMOGLOBIN 10.7 g/dL (11.5-14.8); LYMPHOCYTES # (AUTO) 0.1 K/uL (0.8-4.8); MONOCYTES # (AUTO) 0.1 K/uL (0.1-1.30); NEUTROPHILS # (AUTO) 5.5 K/uL (1.8-8.9); WHITE BLOOD COUNT (AUTO) 5.6 K/uL (4.3-11.0)
[2025-04-17 04:43] LABS: EOSINOPHILS % (AUTO) 0.1 % (0.0-6.0); HEMATOCRIT 34 % (33-45); LYMPHOCYTES % (AUTO) 1.6 % (20.0-44.0); MEAN CORPUSCULAR HEMOGLOBIN 28 PG (26.0-33.0); MEAN CORPUSCULAR HGB CONC 32 g/dl (31.0-36.0); MEAN CORPUSCULAR VOLUME 88 fL (82-100); MONOCYTES % (AUTO) 1.4 % (2.0-12.0); NEUTROPHILS % (AUTO) 96.8 % (43.0-81.0); PLATELET COUNT (AUTO) 54 K/uL (150-450); RED CELL DISTRIBUTION WIDTH 31.6 % (11.5-15.0)
[2025-04-17 04:45] LABS: ALBUMIN 2.2 g/dL (3.4-5.0); CALCIUM, SERUM 8.8 mg/dL (8.5-10.1); CREATININE 0.4 mg/dL (0.6-1.3); MAGNESIUM 2.1 mg/dL (1.8-2.4); PHOSPHORUS 2.2 mg/dL (2.5-4.9); POTASSIUM 3.6 mmol/L (3.5-5.1); TOTAL PROTEIN, SERUM 5.5 g/dL (6.4-8.2)
[2025-04-17 05:27] LABS: ANISOCYTOSIS 1+; HYPOCHROMASIA 1+; LYMPHOCYTES % (MANUAL) 1 % (16-48); MONOCYTES % (MANUAL) 2 % (0-11.0); NEUTROPHILS % (MANUAL) 97 (42-76); PLATELET ESTIMATE DECREASED; TARGET CELLS 1+
[2025-04-17] MEDS: Sodium Phosphate 15 MMOL in IV NS 0.9% 245 ML IV SCH (07:48)
[2025-04-17] MEDS: TPN #11 IV SCH (20:09)
[2025-04-17] MEDS: POTASSIUM CL. PREMIX PERIPHER. 50 ML IV SCH (20:12)
[2025-04-18] VITALS (31 sets, daily range): BP systolic 99–127; BP diastolic 64–91; TEMP 96.2–97.8; O2SAT 93–100
[2025-04-18 04:28] LABS: BASOPHILS % (AUTO) 0.1 % (0.0-2.0); HEMATOCRIT 33 % (33-45); HEMOGLOBIN 10.4 g/dL (11.5-14.8); LYMPHOCYTES # (AUTO) 0.1 K/uL (0.8-4.8); LYMPHOCYTES % (AUTO) 1.8 % (20.0-44.0); MEAN CORPUSCULAR HEMOGLOBIN 28 PG (26.0-33.0); MEAN CORPUSCULAR HGB CONC 32 g/dl (31.0-36.0); MEAN CORPUSCULAR VOLUME 88 fL (82-100); MONOCYTES # (AUTO) 0.4 K/uL (0.1-1.30); MONOCYTES % (AUTO) 5.3 % (2.0-12.0); NEUTROPHILS # (AUTO) 6.5 K/uL (1.8-8.9); NEUTROPHILS % (AUTO) 92.8 % (43.0-81.0); PLATELET COUNT (AUTO) 53 K/uL (150-450); RED BLOOD CELL COUNT(AUTO) 3.75 MIL/uL (4.0-5.2); RED CELL DISTRIBUTION WIDTH 31.4 % (11.5-15.0)
[2025-04-18 04:29] LABS: CALCIUM, SERUM 8.8 mg/dL (8.5-10.1); CREATININE 0.4 mg/dL (0.6-1.3); PHOSPHORUS 2.3 mg/dL (2.5-4.9)
[2025-04-18] MEDS: POTASSIUM CL. PREMIX PERIPHER. 50 ML IV SCH (05:19)
[2025-04-18 05:38] LABS: ANISOCYTOSIS 1+; HYPOCHROMASIA 1+; LYMPHOCYTES % (MANUAL) 2 % (16-48); MONOCYTES % (MANUAL) 5 % (0-11.0); NEUTROPHILS % (MANUAL) 93 (42-76); PLATELET ESTIMATE DECREASED; TARGET CELLS 1+
[2025-04-18] MEDS: POTASSIUM PHOSPHATE MM 15 MMOL in IV NS 0.9% 250 ML IV SCH (10:42)
[2025-04-18] MEDS: Sodium Phosphate 15 MMOL in IV NS 0.9% 245 ML IV SCH (15:00)
[2025-04-18] MEDS: TPN #12 IV SCH (20:57)
[2025-04-18] MEDS: Magnesium 1GM/D5W 100ML PREMIX 100 ML IV SCH (20:57)
[2025-04-19] VITALS (33 sets, daily range): BP systolic 102–123; BP diastolic 66–88; TEMP 96.5–97.5; O2SAT 90–100
[2025-04-19 04:38] LABS: BASOPHILS % (AUTO) 0.1 % (0.0-2.0); EOSINOPHILS % (AUTO) 0.1 % (0.0-6.0); HEMATOCRIT 31 % (33-45); HEMOGLOBIN 9.8 g/dL (11.5-14.8); LYMPHOCYTES # (AUTO) 0.1 K/uL (0.8-4.8); LYMPHOCYTES % (AUTO) 2.1 % (20.0-44.0); MEAN CORPUSCULAR HEMOGLOBIN 28 PG (26.0-33.0); MEAN CORPUSCULAR HGB CONC 32 g/dl (31.0-36.0); MEAN CORPUSCULAR VOLUME 88 fL (82-100); MONOCYTES # (AUTO) 0.2 K/uL (0.1-1.30); MONOCYTES % (AUTO) 4.4 % (2.0-12.0); NEUTROPHILS # (AUTO) 5.2 K/uL (1.8-8.9); NEUTROPHILS % (AUTO) 93.3 % (43.0-81.0); RED BLOOD CELL COUNT(AUTO) 3.46 MIL/uL (4.0-5.2); RED CELL DISTRIBUTION WIDTH 31.4 % (11.5-15.0); WHITE BLOOD COUNT (AUTO) 5.6 K/uL (4.3-11.0)
[2025-04-19 04:41] LABS: CALCIUM, SERUM 8.6 mg/dL (8.5-10.1); CREATININE 0.4 mg/dL (0.6-1.3); MAGNESIUM 2.2 mg/dL (1.8-2.4); PHOSPHORUS 2.6 mg/dL (2.5-4.9); POTASSIUM 3.3 mmol/L (3.5-5.1)
[2025-04-19 05:26] LABS: PLATELET COUNT (AUTO) 50 K/uL (150-450)
[2025-04-19 05:30] LABS: LYMPHOCYTES % (MANUAL) 2 % (16-48); NEUTROPHILS % (MANUAL) 95 (42-76)
[2025-04-19 05:31] LABS: ANISOCYTOSIS 1+; MONOCYTES % (MANUAL) 3 % (0-11.0); PLATELET ESTIMATE DECREASED
[2025-04-19 05:32] LABS: TARGET CELLS 1+
[2025-04-19 05:36] LABS: HYPOCHROMASIA 1+
[2025-04-19] MEDS: FLUCONAZOLE IN NS 100 MG in PREMIX 1 EA IV SCH (11:37)
[2025-04-19] MEDS: POTASSIUM CL. PREMIX PERIPHER. 50 ML IV SCH ×2 (11:37→21:55)
[2025-04-19] MEDS: Sodium Phosphate 15 MMOL in IV NS 0.9% 245 ML IV SCH (17:52)
[2025-04-19] MEDS: MORPHINE SULFATE INJ 2 MG/ML DISP.SYRIN IV PRN (20:19)
[2025-04-19] MEDS: TPN #13 IV SCH (21:32)
[2025-04-20] VITALS (31 sets, daily range): BP systolic 95–133; BP diastolic 61–94; TEMP 97–97.4; O2SAT 97–100
[2025-04-20 05:18] LABS: BASOPHILS % (AUTO) 0.1 % (0.0-2.0); HEMOGLOBIN 9.8 g/dL (11.5-14.8); LYMPHOCYTES # (AUTO) 0.1 K/uL (0.8-4.8); MEAN CORPUSCULAR HGB CONC 32 g/dl (31.0-36.0); MONOCYTES # (AUTO) 0.2 K/uL (0.1-1.30)
[2025-04-20 05:32] LABS: HEMATOCRIT 31 % (33-45); LYMPHOCYTES % (AUTO) 1.6 % (20.0-44.0); MEAN CORPUSCULAR HEMOGLOBIN 28 PG (26.0-33.0); MEAN CORPUSCULAR VOLUME 88 fL (82-100); MONOCYTES % (AUTO) 3.5 % (2.0-12.0); NEUTROPHILS # (AUTO) 4.9 K/uL (1.8-8.9); NEUTROPHILS % (AUTO) 94.8 % (43.0-81.0); RED BLOOD CELL COUNT(AUTO) 3.47 MIL/uL (4.0-5.2); RED CELL DISTRIBUTION WIDTH 30.6 % (11.5-15.0); WHITE BLOOD COUNT (AUTO) 5.2 K/uL (4.3-11.0)
[2025-04-20 05:39] LABS: CALCIUM, SERUM 8.5 mg/dL (8.5-10.1); CREATININE 0.3 mg/dL (0.6-1.3); PHOSPHORUS 2.5 mg/dL (2.5-4.9); POTASSIUM 3.5 mmol/L (3.5-5.1)
[2025-04-20 05:48] LABS: PLATELET COUNT (AUTO) 45 K/uL (150-450)
[2025-04-20 06:09] LABS: LYMPHOCYTES % (MANUAL) 3 % (16-48); MONOCYTES % (MANUAL) 3 % (0-11.0); NEUTROPHILS % (MANUAL) 94 (42-76); PLATELET ESTIMATE DECREASED
[2025-04-20 06:10] LABS: ANISOCYTOSIS 1+; TARGET CELLS 1+
[2025-04-20] MEDS: POTASSIUM PHOSPHATE MM 15 MMOL in IV NS 0.9% 250 ML IV SCH (21:26)
[2025-04-20] MEDS: TPN #14 IV SCH (21:26)
[2025-04-21] VITALS (24 sets, daily range): BP systolic 94–111; BP diastolic 66–81; TEMP 96.8–97; O2SAT 98–100
[2025-04-21 04:28] LABS: CALCIUM, SERUM 8.2 mg/dL (8.5-10.1); CREATININE 0.4 mg/dL (0.6-1.3); PHOSPHORUS 2.9 mg/dL (2.5-4.9); POTASSIUM 3.5 mmol/L (3.5-5.1)
== END 2025-04-21 20:44 | disposition hospice, home (50) | DRG 280 ==
LOC: ER 11:10 → TELE1 14:20 → ICU 03-31 13:24 → TELE 04-13 18:17 → ICU 04-13 21:11
PROVIDERS: ADMIT Nurse Practitioner Acute Care; ATTEND Internal Medicine
PROC: 02HV33Z Insertion of Infusion Device into Superior Vena Cava, Percutaneous Approach (ICD-10-PCS; principal; 2025-03-31)
PROC: B548ZZA Ultrasonography of Superior Vena Cava, Guidance (ICD-10-PCS; 2025-03-31)
PROC: 30233K1 Transfusion of Nonautologous Frozen Plasma into Peripheral Vein, Percutaneous Approach (ICD-10-PCS; 2025-04-01)
PROC: 30233R1 Transfusion of Nonautologous Platelets into Peripheral Vein, Percutaneous Approach (ICD-10-PCS; 2025-04-01)
PROC: 30233M1 Transfusion of Nonautologous Plasma Cryoprecipitate into Peripheral Vein, Percutaneous Approach (ICD-10-PCS; 2025-04-01)
PROC: 0W9930Z Drainage of Right Pleural Cavity with Drainage Device, Percutaneous Approach (ICD-10-PCS; 2025-04-02)
PROC: 5A1955Z Respiratory Ventilation, Greater than 96 Consecutive Hours (ICD-10-PCS; 2025-04-03)
PROC: 0BH17EZ Insertion of Endotracheal Airway into Trachea, Via Natural or Artificial Opening (ICD-10-PCS; 2025-04-03)
PROC: 06H033Z Insertion of Infusion Device into Inferior Vena Cava, Percutaneous Approach (ICD-10-PCS; 2025-04-12)
PROC: B549ZZA Ultrasonography of Inferior Vena Cava, Guidance (ICD-10-PCS; 2025-04-12)
DX: I11.0 Hypertensive heart disease with heart failure (principal); D65 Disseminated intravascular coagulation [defibrination syndrome]; I21.4 Non-ST elevation (NSTEMI) myocardial infarction; R57.0 Cardiogenic shock; J69.0 Pneumonitis due to inhalation of food and vomit; G93.41 Metabolic encephalopathy; J96.01 Acute respiratory failure with hypoxia; I50.33 Acute on chronic diastolic (congestive) heart failure; E87.1 Hypo-osmolality and hyponatremia; D68.59 Other primary thrombophilia; D61.818 Other pancytopenia; E87.20 Acidosis, unspecified; R18.8 Other ascites; J90 Pleural effusion, not elsewhere classified; B37.49 Other urogenital candidiasis; I82.B11 Acute embolism and thrombosis of right subclavian vein; T82.868A Thrombosis due to vascular prosthetic devices, implants and grafts, initial encounter; I27.29 Other secondary pulmonary hypertension; E86.0 Dehydration; I48.91 Unspecified atrial fibrillation; E86.1 Hypovolemia; D69.6 Thrombocytopenia, unspecified; E83.39 Other disorders of phosphorus metabolism; E87.5 Hyperkalemia; F41.9 Anxiety disorder, unspecified; I25.2 Old myocardial infarction; K21.9 Gastro-esophageal reflux disease without esophagitis; R13.10 Dysphagia, unspecified; Z51.5 Encounter for palliative care; Z79.82 Long term (current) use of aspirin; Z95.810 Presence of automatic (implantable) cardiac defibrillator; L89.629 Pressure ulcer of left heel, unspecified stage; L89.619 Pressure ulcer of right heel, unspecified stage; L89.899 Pressure ulcer of other site, unspecified stage; D50.9 Iron deficiency anemia, unspecified; L89.136 Pressure-induced deep tissue damage of right lower back; L89.146 Pressure-induced deep tissue damage of left lower back; R53.1 Weakness; D72.810 Lymphocytopenia; I73.9 Peripheral vascular disease, unspecified; I50.82 Biventricular heart failure; I34.0 Nonrheumatic mitral (valve) insufficiency; Y84.8 Other medical procedures as the cause of abnormal reaction of the patient, or of later complication, without mention of misadventure at the time of the procedure; Y92.230 Patient room in hospital as the place of occurrence of the external cause
CPT/HCPCS: 31720; 36415; 36569; 36600; 70450-TC; 71045-TC; 71250-TC; 72170-TC; 75989; 76705-TC; 80048-TC; 80053-TC; 80061-TC; 80202-TC; 81001; 82040-TC; 82140-TC; 82247-TC; 82248-TC; 82533; 82595; 82728-TC; 82803-TC; 82962-TC; 83520; 83540-TC; 83615-TC; 83735-TC; 83935-TC; 84100-TC; 84295-TC; 84300-TC; 84443-TC; 84484-TC; 84550-TC; 85025-TC; 85027-TC; 85045-TC; 85385-TC; 85396; 85610-TC; 86225; 86235; 86256; 86592; 86593; 86850-TC; 87040-TC; 87070-TC; 87081-TC; 87086-TC; 88108-TC; 88305-TC; 88312-TC; 88341; 88342; 89051-TC; 92526; 92611-TC; 93307-TC; 93971-TC; 94002-TC; 94003-TC; 94640-TC; 94799-TC; 97110-TC; 97112-TC; 97530-TC; 99082-TC; A4216; A4223; A6213; A6253; A6403; A9563; G0378; J0171; J0692; J1200; J1250; J1450; J1644; J1720; J1815; J1938; J2270; J2470; J2919; J3370; J3371; J3475; J3480; J3490; J7030; J7040; J7042; J7050; J7060; P9012; P9017; P9034; Q9967